=== PATIENT | female | born 1940 | race Caucasian/White ===

== ENCOUNTER 2020-09-11 19:07 | Observation (INO) ==
[2020-09-11] MEDS ORDERED: NORMAL SALINE 500 ML IV ONE ×2 (19:52→20:21)
[2020-09-11 19:53] LABS: Hematocrit 35.1 % (37.0-47.0); Hemoglobin 10.6 gm/dL (12.5-16.0); Mean Cell Volume 91.9 fl (78-100); Mean Corpuscular Hemoglobin 27.7 pg (27-31); Mean Corpuscular Hgb Conc 30.2 g/dl (32-36); Mean Platelet Volume 10.4 fl (8-12.5); Neutrophil # 19.4 K/mm3 (1.3-6.0); Neutrophil % 85.8 % (42-75.0); Platelet Count 257 K/mm3 (150-450); Red Blood Count 3.82 M/mm3 (4.2-5.4); Red Cell Distribution Width 14.3 % (11.5-14.0); White Blood Count 22.6 K/mm3 (4.0-10.5)
[2020-09-11 20:00] LABS: Urine Appearance Slightly Cloudy (CLEAR); Urine Bilirubin Negative (NEGATIVE); Urine Blood Negative /ul (NEGATIVE); Urine Color Yellow; Urine Ketone Negative (NEGATIVE); Urine Protein Negative (NEGATIVE); Urine pH 6.5 pH (5.0-7.0)
[2020-09-11 20:01] LABS: Urine Bacteria 4+; Urine Nitrite Positive (NEGATIVE); Urine RBC None Seen /hpf (0-5); Urine Urobilinogen Normal (NORMAL)
[2020-09-11 20:02] LABS: Albumin * 2.9 gm/dl (3.4-5.0); Anion Gap 12.1 mmol/L (6.8-13.8); BUN/Creatinine Ratio 18.8 (9.0-21.6); Bilirubin, Total 0.5 mg/dL (0.0-1.1); Ca. Corrected For Albumin 8.9 mg/dL (8.4-10.2); Calcium * 8.3 mg/dL (7.9-10.9); Carbon Dioxide 27.6 mmol/L (24-32.6); Potassium 3.7 mmol/L (3.4-4.6); Total Protein 6.8 gm/dL (6.2-8.2)
[2020-09-11] MEDS ORDERED: CIPROFLOXACIN IN 5 % DEXTROSE 400 MG/200 ML BAG IV SCH (20:30)
--- NOTE | 2020-09-11 21:49 | ERNOTE ---
Neuro HPI ER Record Time Seen by Provider: 09/11/20 20:12 Immunizations: IMMUNIZATION HX Immunizations Up to Date Yes Allergies/Adverse Reactions: Allergies Allergy/AdvReac Type Severity Reaction Status Date / Time latex Allergy Unknown Verified 09/11/20 19:32 Penicillins Allergy Unknown Verified 09/11/20 19:32 Sulfa (Sulfonamide Allergy Unknown Verified 09/11/20 19:32 Antibiotics) Home Medications: HOME MEDICATIONS Acetaminophen 500 mg PO QID PRN 09/11/20 [Last Taken Unknown] Albuterol Sulfate [Albuterol Sulfate 0.63 MG/3ML] 0.63 mg IH Q4H PRN 09/11/20 [Last Taken Unknown] Aspirin 325 mg PO DAILY 09/11/20 [Last Taken Unknown] Baclofen 20 mg PO TID 09/11/20 [Last Taken Unknown] Bisacodyl [Women's Laxative] 10 mg PO DAILY PRN 09/11/20 [Last Taken Unknown] Bismuth Subsalicylate [Pepto-Bismol] 15 ml PO Q6H PRN 09/11/20 [Last Taken Unknown] Carboxymethylcellulose Sodium [Refresh Tears] 1 drp OP Q6H PRN 09/11/20 [Last Taken Unknown] Cholecalciferol (Vitamin D3) [Vitamin D3] 125 mcg PO DAILY 09/11/20 [Last Taken Unknown] Duloxetine HCl 60 mg PO DAILY 09/11/20 [Last Taken Unknown] Ezetimibe 10 mg PO DAILY 09/11/20 [Last Taken Unknown] Fluticasone Propion/Salmeterol [Fluticasone-Salmeterol 250-50] 1 ea IH BID 09/11/20 [Last Taken Unknown] Fluticasone Propionate [Flovent Diskus] 2 spray IH DAILY 09/11/20 [Last Taken Unknown] Ipratropium/Albuterol Sulfate [Combivent Respimat Inhal [place]] 1 puff IH QID 09/11/20 [Last Taken Unknown] Krill Oil 500 mg PO DAILY 09/11/20 [Last Taken Unknown] Loperamide HCl [Anti-Diarrheal] 2 mg PO BID PRN 09/11/20 [Last Taken Unknown] Magnesium Hydroxide [Milk Of Magnesia] 30 ml PO DAILY PRN 09/11/20 [Last Taken Unknown] Melatonin 3 mg PO HS 09/11/20 [Last Taken Unknown] Methenamine Hippurate 1 gm PO BID 09/11/20 [Last Taken Unknown] Mirtazapine 45 mg PO HS 09/11/20 [Last Taken Unknown] Montelukast Sodium 10 mg PO DAILY 09/11/20 [Last Taken Unknown] Naproxen [Naprosyn] 500 mg PO BID 09/11/20 [Last Taken Unknown] Omeprazole 20 mg PO DAILY 09/11/20 [Last Taken Unknown] Oxycodone HCl/Acetaminophen [Endocet 10-325 mg Tablet] 1 ea PO BID PRN 09/11/20 [Last Taken Unknown] Oxymetazoline HCl [Nasal [place]] 2 spray NS Q4H PRN 09/11/20 [Last Taken Unknown] Polyethylene Glycol 3350 [Miralax] 17 gm PO DAILY PRN 09/11/20 [Last Taken Unknown] Polyvinyl Alcohol [Artificial Tears] 1 drp OP Q4H PRN 09/11/20 [Last Taken Unknown] Pramipexole Di-HCl [Pramipexole Dihydrochloride] 0.125 mg PO DAILY PRN 09/11/20 [Last Taken Unknown] Pramipexole Di-HCl [Pramipexole Dihydrochloride] 0.125 mg PO HS 09/11/20 [Last Taken Unknown] Pregabalin [Lyrica] 100 mg PO BID 09/11/20 [Last Taken Unknown] Sennosides/Docusate Sodium [Senna-S 8.6-50 mg Tablet] 1 ea PO BID 09/11/20 [Last Taken Unknown] Simvastatin 80 mg PO HS 09/11/20 [Last Taken Unknown] Topiramate [Topamax] 25 mg PO BID 09/11/20 [Last Taken Unknown] Vit A/Vit C/Vit E/Zinc/Copper [Preservision Areds Tablet] 1 ea PO BID 09/11/20 [Last Taken Unknown] Vitamin B Complex Vit C No.3 [B Complex with Vitamin C] 1 ea PO DAILY 09/11/20 [Last Taken Unknown] guaiFENesin [Robafen] 5 ml PO TID PRN 09/11/20 [Last Taken Unknown] metFORMIN HCL [Metformin HCl] 500 mg PO DAILY 09/11/20 [Last Taken Unknown] oxyCODONE HCL/ACETAMINOPHEN [Endocet 10-325 mg Tablet] 1 ea PO BID 09/11/20 [Last Taken Unknown] Review of Systems - Review of Systems Constitutional: Present: See HPI Musculoskeletal: Present: other - Left leg pain from the knee down Psych: Present: other - Confusion All Other Systems: All systems neg except as marked Medical History (Last Reviewed 09/11/20 @ 23:27 by James Bay MD) History of COPD History of anxiety History of muscle weakness Hx of diabetes mellitus Hx of hemiplegia L side Hx of hyperlipidemia Surgical History: Surgical History (Last Reviewed 09/11/20 @ 23:27 by James Bay MD) Surgical history unknown Family History: Family History (Last Reviewed 09/11/20 @ 23:27 by James Bay MD) Other No pertinent family history Social History: (Last Reviewed 09/11/20 @ 23:27 by James Bay MD) Social History: snf: Yes Physical Exam - Physical Exam General Appearance: Present: alert, no apparent distress Head Exam: Present: normal inspection, no evidence of injury Eye Exam: Normal inspection: bilateral, PERRL: bilateral, EOMI: bilateral Ears, Nose, Throat: Present: normal ENT inspection Neck: Present: normal inspection, nontender Respiratory: Present: no respiratory distress, no accessory muscle use Cardiovascular/Chest: Present: regular rate, rhythm Gastrointestinal/Abdominal: Present: nontender, nondistended, soft Back Exam: Present: normal inspection Extremity Exam: Present: non-tender - Left lower extremity mild swelling when compared to the other no redness erythema or pitting edema, other - Distal pulses intact and symmetrical Neurological Exam: Present: alert Skin Exam: Present: normal color, warm/dry Progress - Date and Time Seen: Date and Time: 09/11/20 23:28 On review of labs patient with elevated D-dimer CTA of the chest and ultrasound of the left lower extremity were negative for acute thrombosis. - Results and Orders Patient's Lab Results:: I have reviewed the patient's lab results. - Vital Signs Patient's Vital Signs:: I have reviewed the patient's vital signs. Vital Signs: Vital Signs 09/11/20 19:17 09/11/20 19:25 09/11/20 19:26 Temperature 37.6 C Pulse Rate 99 99 100 Respiratory Rate 17 15 Blood Pressure 91/57 87/51 L O2 Sat by Pulse Oximetry 91 L 92 L 09/11/20 19:40 09/11/20 19:44 09/11/20 19:55 Temperature 37.4 C Pulse Rate 104 H 94 105 H Respiratory Rate 17 15 14 Blood Pressure 96/49 84/50 L 88/53 L O2 Sat by Pulse Oximetry 93 93 93 09/11/20 20:16 09/11/20 20:43 09/11/20 20:47 Temperature 37.1 C Pulse Rate 94 86 85 Respiratory Rate 17 17 17 Blood Pressure 95/56 94/49 95/49 O2 Sat by Pulse Oximetry 95 94 09/11/20 21:08 Temperature 37.2 C Pulse Rate 85 Respiratory Rate 17 Blood Pressure 98/54 O2 Sat by Pulse Oximetry 93 - Progress/Reassessment Chief Complaint: Altered Mental Status Progress:: Unchanged Plan - Plan Plan: Case discussed with Dr. Rodriguez turf sales person who accepted patient for urinary tract infection with delirium and hypotension. Patient initially given Cipro for coverage however CT of the chest came back negative for PE but positive for pneumonia azithromycin ordered.. Patient is allergic to penicillin Departure Clinical Impression: Confusion, Pneumonia UTI (urinary tract infection) Qualifiers: Urinary tract infection type: acute cystitis Hematuria presence: without hematuria Qualified Code(s): N30.00 - Acute cystitis without hematuria - Departure Disposition: Home self-care Condition: Fair
[2020-09-11] MEDS ORDERED: NORMAL SALINE 1,000 ML IV ONE (22:22)
[2020-09-11] MEDS ORDERED: AZITHROMYCIN 500 MG in DEXTROSE 5 % IN WATER 250 ML IV ONE ×2 (23:00)
[2020-09-12] MEDS ORDERED: CIPROFLOXACIN HCL 250 MG TABLET PO SCH (09:00)
[2020-09-12] MEDS ORDERED: guaiFENesin 100 MG/5 ML SYRUP PO PRN (09:23)
[2020-09-12] MEDS ORDERED: ACETAMINOPHEN 500 MG TABLET PO PRN (09:23)
[2020-09-12] MEDS ORDERED: POLYETHYLENE GLYCOL 3350 17 GM PACKET PO PRN (09:23)
[2020-09-12] MEDS ORDERED: MAGNESIUM HYDROXIDE 30 ML UDC PO PRN (09:23)
[2020-09-12] MEDS ORDERED: NAPROXEN 500 MG TABLET PO SCH (09:30)
[2020-09-12] MEDS ORDERED: FLUTICASONE PROPION/SALMETEROL 14 PUFF DISK.W.DEV IH SCH (09:30)
[2020-09-12] MEDS ORDERED: metFORMIN HCL 500 MG TABLET PO SCH (09:30)
[2020-09-12] MEDS ORDERED: EZETIMIBE 10 MG TABLET PO SCH (09:30)
[2020-09-12] MEDS ORDERED: MONTELUKAST SODIUM 10 MG TABLET PO SCH (09:30)
--- NOTE | 2020-09-12 09:34 | HP ---
Chief Complaint - Chief Complaint Date of Service: 09/12/20 Time of Service: 09:34 Chief Complaint: confusion History of Present Illness: Patient with PMHx of COPD, CVA with residual left sided weakness, chronic pain, chronic constipation is a resident of the [facility]. She was having some confusion yesterday, along with dysuria and increased urinary frequency. Workup in the ED found signs of UA, and she was given cipro. WBC was elevated to 22.0. D dimer was 1.25, and subsequent CT chest was negative for PT. She feels like she had a fever yesterday. Denies SOB, increased cough. She also has some left lower extremity pain, which she states is long standing. US of her leg was negative. On my admission exam, she states her confusion has resolved and she would like to go back to the [facility]. Medical History (Last Reviewed 09/11/20 @ 23:27 by James Bay MD) History of COPD History of anxiety History of muscle weakness Hx of diabetes mellitus Hx of hemiplegia L side Hx of hyperlipidemia Surgical History: Surgical History (Last Reviewed 09/11/20 @ 23:27 by James Bay MD) Surgical history unknown Family History: Family History (Last Reviewed 09/11/20 @ 23:27 by James Bay MD) Other No pertinent family history Social History: (Last Reviewed 09/11/20 @ 23:27 by James Bay MD) Social History: halfway: Yes Review Of Systems (GEN) - Review of Systems Generalized/Overall Review: Present: Fever Respiratory: Present: Cough. Absent: Shortness of Breath Cardiac: Absent: Chest Pain, Edema Abdominal: Present: Abdominal Pain - feels like she needs to have a BM, Constipation Genitourinary: Present: Burning, Frequency Musculoskeletal: Present: Other - left calf pain Neurological: Present: No Symptoms Reported Skin: Present: No Symptoms Reported Immunizations: IMMUNIZATION HX Immunizations Up to Date Yes Allergies/Adverse Reactions: Allergies Allergy/AdvReac Type Severity Reaction Status Date / Time latex Allergy Unknown Verified 09/11/20 19:32 Penicillins Allergy Unknown Verified 09/11/20 19:32 Sulfa (Sulfonamide Allergy Unknown Verified 09/11/20 19:32 Antibiotics) Home Medications: HOME MEDICATIONS Acetaminophen 500 mg PO QID PRN 09/11/20 [Last Taken Unknown] Albuterol Sulfate [Albuterol Sulfate 0.63 MG/3ML] 0.63 mg IH Q4H PRN 09/11/20 [Last Taken Unknown] Aspirin 325 mg PO DAILY 09/11/20 [Last Taken Unknown] Baclofen 20 mg PO TID 09/11/20 [Last Taken Unknown] Bisacodyl [Women's Laxative] 10 mg PO DAILY PRN 09/11/20 [Last Taken Unknown] Bismuth Subsalicylate [Pepto-Bismol] 15 ml PO Q6H PRN 09/11/20 [Last Taken Unknown] Carboxymethylcellulose Sodium [Refresh Tears] 1 drp OP Q6H PRN 09/11/20 [Last Taken Unknown] Cholecalciferol (Vitamin D3) [Vitamin D3] 125 mcg PO DAILY 09/11/20 [Last Taken Unknown] Duloxetine HCl 60 mg PO DAILY 09/11/20 [Last Taken Unknown] Ezetimibe 10 mg PO DAILY 09/11/20 [Last Taken Unknown] Fluticasone Propion/Salmeterol [Fluticasone-Salmeterol 250-50] 1 ea IH BID 09/11/20 [Last Taken Unknown] Fluticasone Propionate [Flovent Diskus] 2 spray IH DAILY 09/11/20 [Last Taken Unknown] Ipratropium/Albuterol Sulfate [Combivent Respimat Inhal [place]] 1 puff IH QID 09/11/20 [Last Taken Unknown] Krill Oil 500 mg PO DAILY 09/11/20 [Last Taken Unknown] Loperamide HCl [Anti-Diarrheal] 2 mg PO BID PRN 09/11/20 [Last Taken Unknown] Magnesium Hydroxide [Milk Of Magnesia] 30 ml PO DAILY PRN 09/11/20 [Last Taken Unknown] Melatonin 3 mg PO HS 09/11/20 [Last Taken Unknown] Methenamine Hippurate 1 gm PO BID 09/11/20 [Last Taken Unknown] Mirtazapine 45 mg PO HS 09/11/20 [Last Taken Unknown] Montelukast Sodium 10 mg PO DAILY 09/11/20 [Last Taken Unknown] Naproxen [Naprosyn] 500 mg PO BID 09/11/20 [Last Taken Unknown] Omeprazole 20 mg PO DAILY 09/11/20 [Last Taken Unknown] Oxycodone HCl/Acetaminophen [Endocet 10-325 mg Tablet] 1 ea PO BID PRN 09/11/20 [Last Taken Unknown] Oxymetazoline HCl [Nasal [place]] 2 spray NS Q4H PRN 09/11/20 [Last Taken Unknown] Polyethylene Glycol 3350 [Miralax] 17 gm PO DAILY PRN 09/11/20 [Last Taken Unkno wn] Polyvinyl Alcohol [Artificial Tears] 1 drp OP Q4H PRN 09/11/20 [Last Taken Unknown] Pramipexole Di-HCl [Pramipexole Dihydrochloride] 0.125 mg PO DAILY PRN 09/11/20 [Last Taken Unknown] Pramipexole Di-HCl [Pramipexole Dihydrochloride] 0.125 mg PO HS 09/11/20 [Last Taken Unknown] Pregabalin [Lyrica] 100 mg PO BID 09/11/20 [Last Taken Unknown] Sennosides/Docusate Sodium [Senna-S 8.6-50 mg Tablet] 1 ea PO BID 09/11/20 [Last Taken Unknown] Simvastatin 80 mg PO HS 09/11/20 [Last Taken Unknown] Topiramate [Topamax] 25 mg PO BID 09/11/20 [Last Taken Unknown] Vit A/Vit C/Vit E/Zinc/Copper [Preservision Areds Tablet] 1 ea PO BID 09/11/20 [Last Taken Unknown] Vitamin B Complex Vit C No.3 [B Complex with Vitamin C] 1 ea PO DAILY 09/11/20 [Last Taken Unknown] guaiFENesin [Robafen] 5 ml PO TID PRN 09/11/20 [Last Taken Unknown] metFORMIN HCL [Metformin HCl] 500 mg PO DAILY 09/11/20 [Last Taken Unknown] oxyCODONE HCL/ACETAMINOPHEN [Endocet 10-325 mg Tablet] 1 ea PO BID 09/11/20 [Last Taken Unknown] Exam - Exam Vital Signs: Vital Signs - Last Taken Temp 36.8 C 09/12/20 07:14 Pulse 87 09/12/20 07:14 Resp 16 09/12/20 07:14 BP 147/81 09/12/20 07:14 Pulse Ox 97 09/12/20 07:14 Constitutional: Present: Alert, Cooperative, No distress, Elderly Respiratory: Present: lungs clear, normal breath sounds, no respiratory distress - is oxygenating on 2 L. She uses 3 L at baseline Cardiovascular/Chest: Present: regular rate, rhythm Abdomen: Present: Normal bowel sounds, obese Extremity: Present: no calf tenderness. Absent: lower extremity edema Appearance: Present: appropriate appearance Eye contact: Present: cooperative, good eye contact Diagnostic Studies: Abnormal Lab Results 09/11/20 09/11/20 09/11/20 Range/Units 19:35 19:35 19:35 WBC 22.6 H (4.0-10.5) K/mm3 RBC 3.82 L (4.2-5.4) M/mm3 Hgb 10.6 L (12.5-16.0) gm/dL Hct 35.1 L (37.0-47.0) % MCHC 30.2 L (32-36) g/dl RDW 14.3 H (11.5-14.0) % Immature Gran # (Auto) 0.10 H (0.000-0.0310) K/mm3 Neutrophils % 85.8 H (42-75.0) % Lymphocytes % 8.5 L (20-51) % Neutrophils # 19.4 H (1.3-6.0) K/mm3 D-Dimer 1.25 H (0.19-0.49) ug/mL Plasma Sodium 143 H (130-142) mmol/L Random Glucose 146 H (70-110) mg/dL ALT 14 L (19-67) U/L Albumin 2.9 L (3.4-5.0) gm/dl Urine Nitrate (NEGATIVE) Ur Leukocyte Esterase (NEGATIVE) /ul Urine WBC (0-5) /hpf Urine Bacteria (NONE) 09/11/20 Range/Units 19:47 WBC (4.0-10.5) K/mm3 RBC (4.2-5.4) M/mm3 Hgb (12.5-16.0) gm/dL Hct (37.0-47.0) % MCHC (32-36) g/dl RDW (11.5-14.0) % Immature Gran # (Auto) (0.000-0.0310) K/mm3 Neutrophils % (42-75.0) % Lymphocytes % (20-51) % Neutrophils # (1.3-6.0) K/mm3 D-Dimer (0.19-0.49) ug/mL Plasma Sodium (130-142) mmol/L Random Glucose (70-110) mg/dL ALT (19-67) U/L Albumin (3.4-5.0) gm/dl Urine Nitrate Positive H (NEGATIVE) Ur Leukocyte Esterase 100 H (NEGATIVE) /ul Urine WBC 10-25 H (0-5) /hpf Urine Bacteria 4+ H (NONE) Microbiology 09/11/20 19:50 Urine Culture - Preliminary Urine,Catheterized Gram Negative Bacilli Laboratory Results WBC 22.6 K/mm3 (4.0-10.5) H 09/11/20 19:35 RBC 3.82 M/mm3 (4.2-5.4) L 09/11/20 19:35 Hgb 10.6 gm/dL (12.5-16.0) L 09/11/20 19:35 Hct 35.1 % (37.0-47.0) L 09/11/20 19:35 MCV 91.9 fl (78-100) 09/11/20 19:35 MCH 27.7 pg (27-31) 09/11/20 19:35 MCHC 30.2 g/dl (32-36) L 09/11/20 19:35 RDW 14.3 % (11.5-14.0) H 09/11/20 19:35 Plt Count 257 K/mm3 (150-450) 09/11/20 19:35 MPV 10.4 fl (8-12.5) 09/11/20 19:35 Immature Gran % (Auto) 0.40 % (0.001-0.429) 09/11/20 19:35 Immature Gran # (Auto) 0.10 K/mm3 (0.000-0.0310) H 09/11/20 19:35 Neutrophils % 85.8 % (42-75.0) H 09/11/20 19:35 Lymphocytes % 8.5 % (20-51) L 09/11/20 19:35 Monocytes % 4.4 % (0.0-9) 09/11/20 19:35 Eosinophils % 0.7 % (0.0-3.0) 09/11/20 19:35 Basophils % 0.2 % (0.0-1.0) 09/11/20 19:35 Nucleated RBC % 0.0 k/mm3 (0-1) 09/11/20 19:35 Neutrophils # 19.4 K/mm3 (1.3-6.0) H 09/11/20 19:35 Lymphocytes # 1.92 k/mm3 (1.5-3.5) 09/11/20 19:35 Monocytes # 1.0 k/mm3 (0.0-1.0) 09/11/20 19:35 Eosinophils # 0.2 k/mm3 (0.0-0.7) 09/11/20 19:35 Absolute Basophils 0.0 k/mm3 (0.0-0.1) 09/11/20 19:35 D-Dimer 1.25 ug/mL (0.19-0.49) H 09/11/20 19:35 Sodium 142 mmol/L (132-142) 09/11/20 19:35 Plasma Sodium 143 mmol/L (130-142) H 09/11/20 19:35 Potassium 3.7 mmol/L (3.4-4.6) 09/11/20 19:35 Chloride 106 mmol/L (97-106) 09/11/20 19:35 Carbon Dioxide 27.6 mmol/L (24-32.6) 09/11/20 19:35 Anion Gap 12.1 mmol/L (6.8-13.8) 09/11/20 19:35 BUN 15 mg/dL (3-23) 09/11/20 19:35 Creatinine 0.80 mg/dL (0.4-1.4) 09/11/20 19:35 Est GFR (Non-Af Amer) 74 mL/min (60-130) 09/11/20 19:35 BUN/Creatinine Ratio 18.8 (9.0-21.6) 09/11/20 19:35 Random Glucose 146 mg/dL (70-110) H 09/11/20 19:35 Lactic Acid, Venous 1.1 mmol/L (0.4-2.0) 09/11/20 19:35 Calcium 8.3 mg/dL (7.9-10.9) 09/11/20 19:35 Calcium Adj for Albumin 8.9 mg/dL (8.4-10.2) 09/11/20 19:35 Total Bilirubin 0.5 mg/dL (0.0-1.1) 09/11/20 19:35 AST 12 U/L (0-48) 09/11/20 19:35 ALT 14 U/L (19-67) L 09/11/20 19:35 Alkaline Phosphatase 109 U/L (50-170) 09/11/20 19:35 Troponin I 0.019 ng/mL (0.00-0.10) 09/11/20 19:35 Total Protein 6.8 gm/dL (6.2-8.2) 09/11/20 19:35 Albumin 2.9 gm/dl (3.4-5.0) L 09/11/20 19:35 Urine Color Yellow 09/11/20 19:47 Urine Appearance Slightly cloudy (CLEAR) 09/11/20 19:47 Urine pH 6.5 pH (5.0-7.0) 09/11/20 19:47 Ur Specific [place] 1.010 SP.GR. (1.005-1.010) 09/11/20 19:47 Urine Protein Negative mg/dL (NEGATIVE) 09/11/20 19:47 Urine Glucose (UA) Negative mg/dL (NEGATIVE) 09/11/20 19:47 Urine Ketones Negative mg/dL (NEGATIVE) 09/11/20 19:47 Urine Blood Negative /ul (NEGATIVE) 09/11/20 19:47 Urine Nitrate Positive (NEGATIVE) H 09/11/20 19:47 Urine Bilirubin Negative mg/dl (NEGATIVE) 09/11/20 19:47 Urine Urobilinogen Normal EU/dl (NORMAL) 09/11/20 19:47 Ur Leukocyte Esterase 100 /ul (NEGATIVE) H 09/11/20 19:47 Urine RBC None seen /hpf (0-5) 09/11/20 19:47 Urine WBC 10-25 /hpf (0-5) H 09/11/20 19:47 Ur Epithelial Cells 0-5 /hpf (0-5) 09/11/20 19:47 Urine Bacteria 4+ (NONE) H 09/11/20 19:47 Urine Culture Comments Culture to follow 09/11/20 19:47 Assessment/Plan - Narrative Narrative: She has symptoms of UTI, and UA was positive for nitrates, leukocyte esterase, and 4+ bacteria. Urine culture is growing >100,000 gram negative bacilli. She was started on cipro last night. The confusion she was experiencing yesterday has resolved. There was concern for DVT, but US and CT chest were negative for clot. Since she has improved with cipro, will continue this, and ok to return to [place] today to complete a 3 day course of the cipro. BP was a bit low yesterday, and this has also resolved. This may have been due to reduced intake. - Assessment/Plan (1) UTI (urinary tract infection) Problem: Acute Qualifiers: Urinary tract infection type: acute cystitis Hematuria presence: without hematuria Qualified Code(s): N30.00 - Acute cystitis without hematuria (2) Infectious encephalopathy Problem: Resolved (3) COPD (chronic obstructive pulmonary disease) Problem: Chronic (4) Constipation Problem: Chronic
[2020-09-12] MEDS ORDERED: ALBUTEROL SULFATE 2.5 MG/0.5 ML VIAL.NEB IH PRN (09:40)
[2020-09-12] MEDS ORDERED: BISACODYL 5 MG TABLET.DR PO PRN (09:41)
[2020-09-12] MEDS ORDERED: LOPERAMIDE HCL 2 MG CAPSULE PO PRN (09:45)
[2020-09-12] MEDS ORDERED: SENNOSIDES/DOCUSATE SODIUM 1 TAB TABLET PO SCH (09:45)
[2020-09-12] MEDS ORDERED: DULoxetine HCL 30 MG CAPSULE.SA PO SCH (09:45)
[2020-09-12] MEDS ORDERED: oxyCODONE HCL/ACETAMINOPHEN 1 TAB TABLET PO PRN (09:54)
[2020-09-12] MEDS ORDERED: oxyCODONE HCL 5 MG TABLET PO PRN (09:55)
[2020-09-12] MEDS ORDERED: METHENAMINE MANDELATE 1 GM TABLET PO SCH (10:00)
[2020-09-12] MEDS ORDERED: PRAMIPEXOLE DI-HCL 0.5 MG TABLET PO PRN (10:00)
[2020-09-12] MEDS ORDERED: BACLOFEN 10 MG TABLET PO SCH (10:00)
[2020-09-12] MEDS ORDERED: BUDESONIDE 0.5 MG/2 ML VIAL.NEB IH SCH ×2 (10:00)
[2020-09-12] MEDS ORDERED: TOPIRAMATE 50 MG TABLET PO SCH (10:30)
[2020-09-12] MEDS: ALBUTEROL SULFATE/IPRATROPIUM 3 ML NEBU IH SCH ×2 (10:41→14:20)
[2020-09-12 10:43] LABS: Hematocrit 37.9 % (37.0-47.0); Hemoglobin 11.7 gm/dL (12.5-16.0); Mean Cell Volume 91.3 fl (78-100); Mean Corpuscular Hemoglobin 28.2 pg (27-31); Mean Corpuscular Hgb Conc 30.9 g/dl (32-36); Mean Platelet Volume 9.9 fl (8-12.5); Platelet Count 271 K/mm3 (150-450); Red Blood Count 4.15 M/mm3 (4.2-5.4); Red Cell Distribution Width 14.2 % (11.5-14.0); White Blood Count 19.9 K/mm3 (4.0-10.5)
[2020-09-12 10:46] LABS: Total Cells Counted 100
--- NOTE | 2020-09-12 11:10 | DS ---
(1) UTI (urinary tract infection) Problem: Acute Qualifiers: Urinary tract infection type: acute cystitis Hematuria presence: without hematuria Qualified Code(s): N30.00 - Acute cystitis without hematuria (2) Infectious encephalopathy Problem: Resolved (3) COPD (chronic obstructive pulmonary disease) Problem: Chronic (4) Constipation Problem: Chronic Date of Discharge:: 09/12/20 Hospital Course: Patient with PMHx of COPD, CVA with residual left sided weakness, chronic pain, chronic constipation is a resident of the [facility]. She was having some confusion yesterday, along with dysuria and increased urinary frequency. Workup in the ED found signs of UA, and she was given cipro. WBC was elevated to 22.0. D dimer was 1.25, and subsequent CT chest was negative for PT. She feels like she had a fever yesterday. Denies SOB, increased cough. She also has some left lower extremity pain, which she states is long standing. US of her leg was negative. On my admission exam, she states her confusion has resolved and she would like to go back to the [facility]. Her WBC improved to 12.9 the morning after admission. Will DC back to [place] to complete 3 days of cipro. Procedures Performed: none Results and Findings: Pending Mircobiology Results 09/11/20 19:50 Urine,Catheterized Urine Culture - Preliminary Gram Negative Bacilli Lab Pending Results 09/11/20 19:35: WBC 22.6 H, RBC 3.82 L, Hgb 10.6 L, Hct 35.1 L, MCV 91.9, MCH 27.7, MCHC 30.2 L, RDW 14.3 H, Plt Count 257, MPV 10.4, Immature Gran % (Auto) 0.40, Immature Gran # (Auto) 0.10 H, Neutrophils % 85.8 H, Lymphocytes % 8.5 L, Monocytes % 4.4, Eosinophils % 0.7, Basophils % 0.2, Nucleated RBC % 0.0, Neutrophils # 19.4 H, Lymphocytes # 1.92, Monocytes # 1.0, Eosinophils # 0.2, Absolute Basophils 0.0 09/11/20 19:35: Sodium 142, Plasma Sodium 143 H, Potassium 3.7, Chloride 106, Carbon Dioxide 27.6, Anion Gap 12.1, BUN 15, Creatinine 0.80, Est GFR (Non-Af Amer) 74, BUN/Creatinine Ratio 18.8, Random Glucose 146 H, Calcium 8.3, Calcium Adj for Albumin 8.9, Total Bilirubin 0.5, AST 12, ALT 14 L, Alkaline Phosphatase 109, Total Protein 6.8, Albumin 2.9 L 09/11/20 19:35: Lactic Acid, Venous 1.1 09/11/20 19:35: D-Dimer 1.25 H 09/11/20 19:35: Troponin I 0.019 09/11/20 19:47: Urine Color Yellow, Urine Appearance Slightly cloudy, Urine pH 6.5, Ur Specific [place] 1.010, Urine Protein Negative, Urine Glucose (UA) Negative, Urine Ketones Negative, Urine Blood Negative, Urine Nitrate Positive H, Urine Bilirubin Negative, Urine Urobilinogen Normal, Ur Leukocyte Esterase 100 H, Urine RBC None seen, Urine WBC 10-25 H, Ur Epithelial Cells 0-5, Urine Bacteria 4+ H, Urine Culture Comments Culture to follow 09/12/20 10:34: WBC 19.9 H, RBC 4.15 L, Hgb 11.7 L, Hct 37.9, MCV 91.3, MCH 28.2, MCHC 30.9 L, RDW 14.2 H, Plt Count 271, MPV 9.9, Lymphocytes % (Manual) Pending Discharge Location: [facility] Disposition: SNF Condition: Fair Discharge Activity: Activity as tolerated Discharge Diet: General/regular food Additional Patient Instructions (free text): [facility] SNF for PT and OT to evaluate and treat. Prescriptions (Any new or edited meds): RX: Ciprofloxacin HCl [Cipro] 250 mg PO BID #4 tab Transmission Status: Pending to [facility] Complete Home Medications List: Complete Home Medication List: RX: Acetaminophen 500 mg PO QID PRN 09/11/20 RX: Albuterol Sulfate [Albuterol Sulfate 0.63 MG/3ML] 0.63 mg IH Q4H PRN 09/11/20 RX: Aspirin 325 mg PO DAILY 09/11/20 RX: Baclofen 20 mg PO TID 09/11/20 RX: Bisacodyl [Women's Laxative] 10 mg PO DAILY PRN 09/11/20 RX: Bismuth Subsalicylate [Pepto-Bismol] 15 ml PO Q6H PRN 09/11/20 RX: Carboxymethylcellulose Sodium [Refresh Tears] 1 drp OP Q6H PRN 09/11/20 RX: Cholecalciferol (Vitamin D3) [Vitamin D3] 125 mcg PO DAILY 09/11/20 RX: Duloxetine HCl 60 mg PO DAILY 09/11/20 RX: Ezetimibe 10 mg PO DAILY 09/11/20 RX: Fluticasone Propion/Salmeterol [Fluticasone-Salmeterol 250-50] 1 ea IH BID 09/11/20 RX: Fluticasone Propionate [Flovent Diskus] 2 spray IH DAILY 09/11/20 RX: Ipratropium/Albuterol Sulfate [Combivent Respimat 20-100 Mcg] 1 puff IH QID 09/11/20 RX: Krill Oil 500 mg PO DAILY 09/11/20 RX: Loperamide HCl [Anti-Diarrheal] 2 mg PO BID PRN 09/11/20 RX: Magnesium Hydroxide [Milk Of Magnesia] 30 ml PO DAILY PRN 09/11/20 RX: Melatonin 3 mg PO HS 09/11/20 RX: Methenamine Hippurate 1 gm PO BID 09/11/20 RX: Mirtazapine 45 mg PO HS 09/11/20 RX: Montelukast Sodium 10 mg PO DAILY 09/11/20 RX: Naproxen [Naprosyn] 500 mg PO BID 09/11/20 RX: Omeprazole 20 mg PO DAILY 09/11/20 RX: Oxycodone HCl/Acetaminophen [Endocet 10-325 mg Tablet] 1 ea PO BID PRN 09/11/20 RX: Oxymetazoline HCl [Nasal [place]] 2 spray NS Q4H PRN 09/11/20 RX: Polyethylene Glycol 3350 [Miralax] 17 gm PO DAILY PRN 09/11/20 RX: Polyvinyl Alcohol [Artificial Tears] 1 drp OP Q4H PRN 09/11/20 RX: Pramipexole Di-HCl [Pramipexole Dihydrochloride] 0.125 mg PO DAILY PRN 09/11/20 RX: Pramipexole Di-HCl [Pramipexole Dihydrochloride] 0.125 mg PO HS 09/11/20 RX: Pregabalin [Lyrica] 100 mg PO BID 09/11/20 RX: Sennosides/Docusate Sodium [Senna-S 8.6-50 mg Tablet] 1 ea PO BID 09/11/20 RX: Simvastatin 80 mg PO HS 09/11/20 RX: Topiramate [Topamax] 25 mg PO BID 09/11/20 RX: Vit A/Vit C/Vit E/Zinc/Copper [Preservision Areds Tablet] 1 ea PO BID 09/11/20 RX: Vitamin B Complex Vit C No.3 [B Complex with Vitamin C] 1 ea PO DAILY 09/11/20 RX: guaiFENesin [Robafen] 5 ml PO TID PRN 09/11/20 RX: metFORMIN HCL [Metformin HCl] 500 mg PO DAILY 09/11/20 RX: oxyCODONE HCL/ACETAMINOPHEN [Endocet 10-325 mg Tablet] 1 ea PO BID 09/11/20 RX: Ciprofloxacin HCl [Cipro] 250 mg PO BID #4 tab 09/12/20 Forms: Patient Portal Registration
[2020-09-12 11:13] LABS: Eosinophil 1 % (0-3); Lymphocyte 10 % (20-51); Monocyte 5 % (0-9); Neutrophil 84 % (42-75); Neutrophil # 16.7 K/mm3 (1.3-6.0)
[2020-09-12 11:14] LABS: Platelet Estimate Normal (NORMAL); RBC Morphology Normal (NORMAL)
[2020-09-12 15:11] VITALS: BP 119/69
[2020-09-12] MEDS ORDERED: oxyCODONE HCL 5 MG TABLET PO SCH (21:00)
[2020-09-12] MEDS ORDERED: MIRTAZAPINE 15 MG TABLET PO SCH (21:00)
[2020-09-12] MEDS ORDERED: PRAMIPEXOLE DI-HCL 0.5 MG TABLET PO SCH (21:00)
[2020-09-12] MEDS ORDERED: MELATONIN 3,000 MCG TABLET PO SCH (21:00)
[2020-09-12] MEDS ORDERED: PREGABALIN 50 MG CAPSULE PO SCH (21:00)
[2020-09-12] MEDS ORDERED: oxyCODONE HCL/ACETAMINOPHEN 1 TAB TABLET PO SCH (21:00)
== END 2020-09-12 15:00 ==
LOC: ER 19:07 → INTOOBSV 23:17 → MS 23:17
PROVIDERS: ADMIT Family Medicine; ATTEND Family Medicine

== ENCOUNTER 2020-11-21 10:18 | Observation (INO) ==
--- NOTE | 2020-11-21 10:45 | ERNOTE ---
Medical Problem HPI - Narrative Date of Service: 11/21/20 - General Chief Complaint: Altered Mental Status Time Seen by Provider: 11/21/20 10:24 Source: RN notes reviewed, group home records Exam Limitations: clinical condition - Immun/Allergies/Home Medications Immunizations: IMMUNIZATION HX Immunizations Up to Date Yes Allergies/Adverse Reactions: Allergies latex Allergy (Unknown, Verified 09/28/20 12:22) Penicillins Allergy (Unknown, Verified 09/28/20 12:22) Sulfa (Sulfonamide Antibiotics) Allergy (Unknown, Verified 09/28/20 12:22) tuberculin, purified protein deriva [From Aplisol] Allergy (Unknown, Verified 11/21/20 10:49) Home Medications: HOME MEDICATIONS Acetaminophen 500 mg PO QID PRN 09/11/20 [Last Taken Unknown] Albuterol Sulfate [Albuterol Sulfate 0.63 MG/3ML] 0.63 mg IH Q4H PRN 09/11/20 [Last Taken Unknown] Aspirin 325 mg PO DAILY 09/11/20 [Last Taken Unknown] Baclofen 20 mg PO TID 09/11/20 [Last Taken Unknown] Bisacodyl [Women's Laxative] 10 mg PO DAILY PRN 09/11/20 [Last Taken Unknown] Bismuth Subsalicylate [Pepto-Bismol] 15 ml PO Q6H PRN 09/11/20 [Last Taken Unknown] Carboxymethylcellulose Sodium [Refresh Tears] 1 drp OP Q6H PRN 09/11/20 [Last Taken Unknown] Cholecalciferol (Vitamin D3) [Vitamin D3] 125 mcg PO DAILY 09/11/20 [Last Taken Unknown] Duloxetine HCl 60 mg PO DAILY 09/11/20 [Last Taken Unknown] Ezetimibe 10 mg PO DAILY 09/11/20 [Last Taken Unknown] Fluticasone Propion/Salmeterol [Fluticasone-Salmeterol 250-50] 1 ea IH BID 09/11/20 [Last Taken Unknown] Fluticasone Propionate [Flovent Diskus] 2 spray IH DAILY 09/11/20 [Last Taken Unknown] Ipratropium/Albuterol Sulfate [Combivent Respimat 20-100 Mcg] 1 puff IH QID 09/11/20 [Last Taken Unknown] Krill Oil 500 mg PO DAILY 09/11/20 [Last Taken Unknown] Loperamide HCl [Anti-Diarrheal] 2 mg PO BID PRN 09/11/20 [Last Taken Unknown] Magnesium Hydroxide [Milk Of Magnesia] 30 ml PO DAILY PRN 09/11/20 [Last Taken Unknown] Melatonin 3 mg PO HS 09/11/20 [Last Taken Unknown] Methenamine Hippurate 1 gm PO BID 09/11/20 [Last Taken Unknown] Mirtazapine 45 mg PO HS 09/11/20 [Last Taken Unknown] Montelukast Sodium 10 mg PO DAILY 09/11/20 [Last Taken Unknown] Naproxen [Naprosyn] 500 mg PO BID 09/11/20 [Last Taken Unknown] Omeprazole 20 mg PO DAILY 09/11/20 [Last Taken Unknown] Oxycodone HCl/Acetaminophen [Endocet 10-325 mg Tablet] 1 ea PO BID PRN 09/11/20 [Last Taken Unknown] Oxymetazoline HCl [Nasal [place]] 2 spray NS Q4H PRN 09/11/20 [Last Taken Unknown] Polyethylene Glycol 3350 [Miralax] 17 gm PO DAILY PRN 09/11/20 [Last Taken Unknown] Polyvinyl Alcohol [Artificial Tears] 1 drp OP Q4H PRN 09/11/20 [Last Taken Unknown] Pramipexole Di-HCl [Pramipexole Dihydrochloride] 0.125 mg PO HS 09/11/20 [Last Taken Unknown] Pregabalin [Lyrica] 100 mg PO BID 09/11/20 [Last Taken Unknown] Sennosides/Docusate Sodium [Senna-S 8.6-50 mg Tablet] 1 ea PO BID 09/11/20 [Last Taken Unknown] Simvastatin 80 mg PO HS 09/11/20 [Last Taken Unknown] Topiramate [Topamax] 25 mg PO BID 09/11/20 [Last Taken Unknown] Vit A/Vit C/Vit E/Zinc/Copper [Preservision Areds Tablet] 1 ea PO BID 09/11/20 [Last Taken Unknown] Vitamin B Complex Vit C No.3 [B Complex with Vitamin C] 1 ea PO DAILY 09/11/20 [Last Taken Unknown] guaiFENesin [Robafen] 5 ml PO TID PRN 09/11/20 [Last Taken Unknown] metFORMIN HCL [Metformin HCl] 500 mg PO DAILY 09/11/20 [Last Taken Unknown] Ciprofloxacin HCl [Cipro] 250 mg PO BID #4 tab 09/12/20 [Last Taken Unknown] - History of Present History Narrative: The patient is a 80 year old female who presents via EMS from [facility] for lethargy which has been increasing since yesterday. There are associated symptoms of cough, fatigue and increased confusion. The patient denies pain. There are no alleviating factors. There are no aggravating factors. Previous treatments have included: none. The past medical history includes: anxiety, DM, HLD, COPD and CVA. The social history is negative. The patient has had no known ill contacts. [facility] became concerned of patient's incre asing lethargy since yesterday. Nursing report declines concern of alteration from baseline except for increased drowsiness. Patient is oriented to self, place and events however if not engaged with verbal stimuli quickly returns to sleep. Awakens easily with verbal stimuli. Review of Systems - Narrative Narrative: ROS difficult to obtain due to patient's lethargy, report was also obtained from [facility] nursing staff. - Review of Systems Constitutional: Present: weakness, fatigue. Absent: fever ENT: Present: no symptoms reported. Absent: ear pain, nasal drainage, sore throat Respiratory: Present: cough. Absent: shortness of breath Cardiology: Present: no symptoms reported. Absent: chest pain Gastrointestinal/Abdominal: Present: no symptoms reported. Absent: vomiting, diarrhea Genitourinary: Present: other - incontinence Skin: Present: no symptoms reported. Absent: rash Medical History (Last Reviewed 11/21/20 @ 10:45 by DAVID Sherman) UTI (urinary tract infection) (Acute) Confusion (Acute) Pneumonia (Acute) COPD (chronic obstructive pulmonary disease) (Chronic) Constipation (Chronic) Infectious encephalopathy (Resolved) History of muscle weakness (Acute) Hx of hemiplegia (Acute) L side History of COPD (Acute) Hx of hyperlipidemia (Acute) Hx of diabetes mellitus (Acute) History of anxiety (Acute) Surgical History: Surgical History (Last Reviewed 11/21/20 @ 10:45 by DAVID Sherman) Surgical history unknown (Acute) Family History: Family History (Last Reviewed 11/21/20 @ 10:45 by DAVID Sherman) Other No pertinent family history Social History: (Last Reviewed 11/21/20 @ 10:45 by DAVID Sherman) Social History: group home: Yes group home comment: [place] Physical Exam - Physical Exam General Appearance: Present: no apparent distress, lethargic, sleeping/easy to arouse Head Exam: Present: normal inspection, no evidence of injury Eye Exam: Normal inspection: bilateral Ears, Nose, Throat: Present: other - left facial droop Neck: Present: normal inspection Respiratory: Present: accessory muscle use, rhonchi, wheezing Cardiovascular/Chest: Present: regular rate, rhythm, no murmur Gastrointestinal/Abdominal: Present: normal bowel sounds, nontender, nondistended, soft, no organomegaly Extremity Exam: Present: no edema Neurological Exam: Present: oriented - lethargic but answers questions appropriately with verbal stimuli, motor weakness - left side, CVA residual. Absent: disoriented to person, disoriented to time, disoriented to place, disoriented to situation Skin Exam: Present: normal color, warm/dry Progress - Date and Time Seen: Date and Time: 11/21/20 11:26 Spoke with patient's nurse at [facility] and she states that patient has received Keflex in the past and tolerated without adverse reaction. Will intiaite Rocephin for nitrate positive UTI and presumed pneumonia since was present on previous CXR obtained at [facility] and rhonchi on exam with increased lethargy. 11/21/20 14:48 Case and results discussed with , will admit for IV antibiotics and monitoring. Trop could be associated with pneumonia, will repeat serial level for monitoring. Patient resting without complaint or distress noted. BP improved with IV hydration. Will administer Rocephin and IV Azithromycin for treatment of pnuemonia and UTI, previous urine culture sensitive to Rocephin while cultures pending. - Results and Orders Patient's Lab Results:: I have reviewed the patient's lab results. - Vital Signs Patient's Vital Signs:: I have reviewed the patient's vital signs. - EKG EKG #1 EKG: NSR, RBBB EKG read: Reviewed by me - X-Ray X-Ray #1 X-Ray: chest Interpretation: Reviewed by me X-ray Comments: IMPRESSION: CARDIOMEGALY. PATCHY RIGHT LUNG CONSOLIDATION SLIGHTLY IMPROVED IN THE INTERVAL. Electronically signed by Raza Covarrubias M.D.. Departure Clinical Impression: Elevated troponin Pneumonia Qualifiers: Pneumonia type: due to unspecified organism Laterality: right Lung location: lower lobe of lung Qualified Code(s): J18.9 - Pneumonia, unspecified organism Urinary tract infection Qualifiers: Urinary tract infection type: site unspecified Hematuria presence: without hematuria Qualified Code(s): N39.0 - Urinary tract infection, site not specified - Departure Disposition: Still a patient Condition: Fair
[2020-11-21] MEDS ORDERED: NORMAL SALINE 500 ML IV PRN (10:47)
[2020-11-21 10:52] LABS: Hematocrit 33.5 % (37.0-47.0); Hemoglobin 10.2 gm/dL (12.5-16.0); Mean Cell Volume 87.2 fl (78-100); Mean Corpuscular Hemoglobin 26.6 pg (27-31); Mean Corpuscular Hgb Conc 30.4 g/dl (32-36); Mean Platelet Volume 10.5 fl (8-12.5); Neutrophil # 12.3 K/mm3 (1.3-6.0); Neutrophil % 77.4 % (42-75.0); Platelet Count 281 K/mm3 (150-450); Red Blood Count 3.84 M/mm3 (4.2-5.4)
[2020-11-21 10:57] LABS: Urine Bilirubin Negative (NEGATIVE); Urine Blood Negative /ul (NEGATIVE); Urine Ketone 5 mg/dL (NEGATIVE); Urine Protein 30 mg/dL (NEGATIVE); Urine Urobilinogen Normal (NORMAL)
[2020-11-21 11:10] LABS: Albumin * 2.6 gm/dl (3.4-5.0); Anion Gap 16.9 mmol/L (6.8-13.8); BUN/Creatinine Ratio 15.4 (9.0-21.6); Bilirubin, Total 0.6 mg/dL (0.0-1.1); Ca. Corrected For Albumin 9.5 mg/dL (8.4-10.2); Calcium * 8.7 mg/dL (7.9-10.9); Carbon Dioxide 26.8 mmol/L (24-32.6); Potassium 3.7 mmol/L (3.4-4.6); Total Protein 7.3 gm/dL (6.2-8.2); Troponin I 0.212 ng/mL (0.00-0.10)
[2020-11-21 11:16] LABS: Urine Appearance Slightly Cloudy (CLEAR); Urine Bacteria 4+; Urine Color Yellow; Urine Nitrite Positive (NEGATIVE); Urine RBC None Seen /hpf (0-5); Urine WBC >50 /hpf (0-5)
[2020-11-21] MEDS ORDERED: cefTRIAXone SODIUM 1,000 MG/100 ML BAG IV ONE (11:26)
[2020-11-21] MEDS ORDERED: NORMAL SALINE 1,000 ML IV PRN (11:50)
[2020-11-21] MEDS ORDERED: AZITHROMYCIN 500 MG in DEXTROSE 5 % IN WATER 250 ML IV ONE ×2 (13:08)
[2020-11-21] MEDS ORDERED: guaiFENesin 100 MG/5 ML SYRUP PO PRN (21:33)
[2020-11-21] MEDS ORDERED: POLYETHYLENE GLYCOL 3350 17 GM PACKET PO PRN (21:33)
[2020-11-21] MEDS ORDERED: MAGNESIUM HYDROXIDE 30 ML UDC PO PRN (21:33)
[2020-11-21] MEDS ORDERED: ACETAMINOPHEN 500 MG TABLET PO PRN (21:33)
[2020-11-21] MEDS ORDERED: ALBUTEROL SULFATE 0.63 MG/3 ML VIAL.NEB IH PRN (21:54)
[2020-11-21] MEDS ORDERED: BISMUTH SUBSALICYLATE PO PRN (21:55)
[2020-11-21] MEDS ORDERED: BISACODYL 5 MG TABLET.DR PO PRN (21:55)
[2020-11-21] MEDS ORDERED: GLYCERIN/PROPYLENE GLYCOL 150 DROP BTL EACHEYE PRN (22:04)
--- NOTE | 2020-11-21 23:16 | HP ---
Chief Complaint - Chief Complaint Date of Service: 11/21/20 Time of Service: 22:00 Chief Complaint: Lethargy, altered mental status History of Present Illness: Tamela is a 80 yo female who presented to the [facility] ER from [facility] for lethargy noted by nursing. Reports indicate increased cough, fatigue, and confusion. She was treated for UTI back in September with Cipro. Changes in patient condition began yesterday. The patient is a poor historian and is sleeping and difficult to awaken. When she does awaken she falls to sleep easily/quickly. Medical History (Last Reviewed 11/21/20 @ 11:03 by Jose A Joseph, RN) UTI (urinary tract infection) (Acute) Confusion (Acute) Pneumonia (Acute) COPD (chronic obstructive pulmonary disease) (Chronic) Constipation (Chronic) Infectious encephalopathy (Resolved) History of muscle weakness (Acute) Hx of hemiplegia (Acute) L side History of COPD (Acute) Hx of hyperlipidemia (Acute) Hx of diabetes mellitus (Acute) History of anxiety (Acute) Surgical History: Surgical History (Last Reviewed 11/21/20 @ 11:03 by Jose A Joseph, RN) Surgical history unknown (Acute) Family History: Family History (Last Reviewed 11/21/20 @ 11:03 by Jose A Joseph, RN) Other No pertinent family history Social History: (Last Reviewed 11/21/20 @ 11:03 by Jose A Joseph, RN) Social History: fpc: Yes fpc comment: [place] Review Of Systems (GEN) - Review of Systems Additional Comments: ROS unobtainable in patient's current condition. Immunizations: IMMUNIZATION HX Immunizations Up to Date Yes History of Influenza Vaccine More Information Required Hx Pneumococcal Vaccination More Information Required Allergies/Adverse Reactions: Allergies Allergy/AdvReac Type Severity Reaction Status Date / Time latex Allergy Unknown Verified 09/28/20 12:22 Penicillins Allergy Unknown Verified 09/28/20 12:22 Sulfa (Sulfonamide Allergy Unknown Verified 09/28/20 12:22 Antibiotics) tuberculin, purified protein Allergy Unknown Verified 11/21/20 10:49 deriva [From Aplisol] Home Medications: HOME MEDICATIONS Acetaminophen 500 mg PO QID PRN 09/11/20 [Last Taken Unknown] Albuterol Sulfate [Albuterol Sulfate 0.63 MG/3ML] 0.63 mg IH Q4H PRN 09/11/20 [Last Taken Unknown] Aspirin 325 mg PO DAILY 09/11/20 [Last Taken Unknown] Baclofen 20 mg PO TID 09/11/20 [Last Taken Unknown] Bisacodyl [Women's Laxative] 10 mg PO DAILY PRN 09/11/20 [Last Taken Unknown] Bismuth Subsalicylate [Pepto-Bismol] 15 ml PO Q6H PRN 09/11/20 [Last Taken Unknown] Carboxymethylcellulose Sodium [Refresh Tears] 1 drp OP Q6H PRN 09/11/20 [Last Taken Unknown] Cholecalciferol (Vitamin D3) [Vitamin D3] 125 mcg PO DAILY 09/11/20 [Last Taken Unknown] Duloxetine HCl 60 mg PO DAILY 09/11/20 [Last Taken Unknown] Ezetimibe 10 mg PO DAILY 09/11/20 [Last Taken Unknown] Fluticasone Propion/Salmeterol [Fluticasone-Salmeterol 250-50] 1 ea IH BID 09/11/20 [Last Taken Unknown] Fluticasone Propionate [Flovent Diskus] 2 spray IH DAILY 09/11/20 [Last Taken Unknown] Ipratropium/Albuterol Sulfate [Combivent Respimat 20-100 Mcg] 1 puff IH QID 09/11/20 [Last Taken Unknown] Krill Oil 500 mg PO DAILY 09/11/20 [Last Taken Unknown] Loperamide HCl [Anti-Diarrheal] 2 mg PO BID PRN 09/11/20 [Last Taken Unknown] Magnesium Hydroxide [Milk Of Magnesia] 30 ml PO DAILY PRN 09/11/20 [Last Taken Unknown] Melatonin 3 mg PO HS 09/11/20 [Last Taken Unknown] Methenamine Hippurate 1 gm PO BID 09/11/20 [Last Taken Unknown] Mirtazapine 45 mg PO HS 09/11/20 [Last Taken Unknown] Montelukast Sodium 10 mg PO DAILY 09/11/20 [Last Taken Unknown] Naproxen [Naprosyn] 500 mg PO BID 09/11/20 [Last Taken Unknown] Omeprazole 20 mg PO DAILY 09/11/20 [Last Taken Unknown] Oxycodone HCl/Acetaminophen [Endocet 10-325 mg Tablet] 1 ea PO BID PRN 09/11/20 [Last Taken Unknown] Oxymetazoline HCl [Nasal [place]] 2 spray NS Q4H PRN 09/11/20 [Last Taken Unknown] Polyethylene Glycol 3350 [Miralax] 17 gm PO DAILY PRN 09/11/20 [Last Taken Unknown] Polyvinyl Alcohol [Artificial Tears] 1 drp OP Q4H PRN 09/11/20 [Last Taken Unknown] Pramipexole Di-HCl [Pramipexole Dihydrochloride] 0.125 mg PO HS 09/11/20 [Last Taken Unknown] Pregabalin [Lyrica] 100 mg PO BID 09/11/20 [Last Taken Unknown] Sennosides/Docusate Sodium [Senna-S 8.6-50 mg Tablet] 1 ea PO BID 09/11/20 [Last Taken Unknown] Simvastatin 80 mg PO HS 09/11/20 [Last Taken Unknown] Topiramate [Topamax] 25 mg PO BID 09/11/20 [Last Taken Unknown] Vit A/Vit C/Vit E/Zinc/Copper [Preservision [place]red[place] Tablet] 1 ea PO BID 09/11/20 [Last Taken Unknown] Vitamin B Complex Vit C No.3 [B Complex with Vitamin C] 1 ea PO DAILY 09/11/20 [Last Taken Unknown] guaiFENesin [Robafen] 5 ml PO TID PRN 09/11/20 [Last Taken Unknown] metFORMIN HCL [Metformin HCl] 500 mg PO DAILY 09/11/20 [Last Taken Unknown] Ciprofloxacin HCl [Cipro] 250 mg PO BID #4 tab 09/12/20 [Last Taken Unknown] Exam - Exam Vital Signs: Vital Signs - Last Taken Temp 36.7 C 11/21/20 19:25 Pulse 75 11/21/20 19:25 Resp 17 11/21/20 19:25 BP 116/62 11/21/20 19:25 Pulse Ox 95 11/21/20 19:25 Constitutional: Present: Lethargic Eye Exam: bilateral eye: normal inspection Respiratory: Present: no respiratory distress, crackles - right lung base Cardiovascular/Chest: Present: regular rate, rhythm Peripheral Pulses: radial (R): 2+, radial (L): 2+ Abdomen: Present: Normal bowel sounds, soft, nontender, nondistended Skin Exam: Present: normal color, warm/dry, no cyanosis Neurologic: Present: other - Does not participate due to somnolence Diagnostic Studies: Abnormal Lab Results 11/21/20 11/21/20 11/21/20 Range/Units 10:33 10:33 10:52 WBC 16.0 H (4.0-10.5) K/mm3 RBC 3.84 L (4.2-5.4) M/mm3 Hgb 10.2 L (12.5-16.0) gm/dL Hct 33.5 L (37.0-47.0) % MCH 26.6 L (27-31) pg MCHC 30.4 L (32-36) g/dl RDW 16.0 H (11.5-14.0) % Immature Gran % (Auto) 0.60 H (0.001-0.429) % Immature Gran # (Auto) 0.10 H (0.000-0.0310) K/mm3 Neutrophils % 77.4 H (42-75.0) % Lymphocytes % 17.6 L (20-51) % Neutrophils # 12.3 H (1.3-6.0) K/mm3 Sodium 144 H (132-142) mmol/L Plasma Sodium 144 H (130-142) mmol/L Anion Gap 16.9 H (6.8-13.8) mmol/L Est GFR (Non-Af Amer) 40 L D (60-130) mL/min ALT 13 L (19-67) U/L Troponin I 0.212 H* (0.00-0.10) ng/mL B-Natriuretic Peptide 2020 H (5-550) pg/mL Albumin 2.6 L (3.4-5.0) gm/dl Urine Protein 30 H (NEGATIVE) mg/dL Urine Nitrate Positive H (NEGATIVE) Ur Leukocyte Esterase 75 H (NEGATIVE) /ul Urine WBC >50 H (0-5) /hpf Ur Epithelial Cells 5-10 H (0-5) /hpf Urine Bacteria 4+ H (NONE) 11/21/20 Range/Units 13:28 WBC (4.0-10.5) K/mm3 RBC (4.2-5.4) M/mm3 Hgb (12.5-16.0) gm/dL Hct (37.0-47.0) % MCH (27-31) pg MCHC (32-36) g/dl RDW (11.5-14.0) % Immature Gran % (Auto) (0.001-0.429) % Immature Gran # (Auto) (0.000-0.0310) K/mm3 Neutrophils % (42-75.0) % Lymphocytes % (20-51) % Neutrophils # (1.3-6.0) K/mm3 Sodium (132-142) mmol/L Plasma Sodium (130-142) mmol/L Anion Gap (6.8-13.8) mmol/L Est GFR (Non-Af Amer) (60-130) mL/min ALT (19-67) U/L Troponin I 0.144 H* (0.00-0.10) ng/mL B-Natriuretic Peptide (5-550) pg/mL Albumin (3.4-5.0) gm/dl Urine Protein (NEGATIVE) mg/dL Urine Nitrate (NEGATIVE) Ur Leukocyte Esterase (NEGATIVE) /ul Urine WBC (0-5) /hpf Ur Epithelial Cells (0-5) /hpf Urine Bacteria (NONE) Laboratory Results WBC 16.0 K/mm3 (4.0-10.5) H 11/21/20 10:33 RBC 3.84 M/mm3 (4.2-5.4) L 11/21/20 10:33 Hgb 10.2 gm/dL (12.5-16.0) L 11/21/20 10:33 Hct 33.5 % (37.0-47.0) L 11/21/20 10:33 MCV 87.2 fl (78-100) 11/21/20 10:33 MCH 26.6 pg (27-31) L 11/21/20 10:33 MCHC 30.4 g/dl (32-36) L 11/21/20 10:33 RDW 16.0 % (11.5-14.0) H 11/21/20 10:33 Plt Count 281 K/mm3 (150-450) 11/21/20 10:33 MPV 10.5 fl (8-12.5) 11/21/20 10:33 Immature Gran % (Auto) 0.60 % (0.001-0.429) H 11/21/20 10:33 Immature Gran # (Auto) 0.10 K/mm3 (0.000-0.0310) H 11/21/20 10:33 Neutrophils % 77.4 % (42-75.0) H 11/21/20 10:33 Lymphocytes % 17.6 % (20-51) L 11/21/20 10:33 Monocytes % 3.4 % (0.0-9) 11/21/20 10:33 Eosinophils % 0.9 % (0.0-3.0) 11/21/20 10:33 Basophils % 0.1 % (0.0-1.0) 11/21/20 10:33 Nucleated RBC % 0.0 k/mm3 (0-1) 11/21/20 10:33 Neutrophils # 12.3 K/mm3 (1.3-6.0) H 11/21/20 10:33 Lymphocytes # 2.81 k/mm3 (1.5-3.5) 11/21/20 10:33 Monocytes # 0.6 k/mm3 (0.0-1.0) 11/21/20 10:33 Eosinophils # 0.1 k/mm3 (0.0-0.7) 11/21/20 10:33 Absolute Basophils 0.0 k/mm3 (0.0-0.1) 11/21/20 10:33 Sodium 144 mmol/L (132-142) H 11/21/20 10:33 Plasma Sodium 144 mmol/L (130-142) H 11/21/20 10:33 Potassium 3.7 mmol/L (3.4-4.6) 11/21/20 10:33 Chloride 104 mmol/L (97-106) 11/21/20 10:33 Carbon Dioxide 26.8 mmol/L (24-32.6) 11/21/20 10:33 Anion Gap 16.9 mmol/L (6.8-13.8) H 11/21/20 10:33 BUN 21 mg/dL (3-23) D 11/21/20 10:33 Creatinine 1.36 mg/dL (0.4-1.4) D 11/21/20 10:33 Est GFR (Non-Af Amer) 40 mL/min (60-130) L D 11/21/20 10:33 BUN/Creatinine Ratio 15.4 (9.0-21.6) 11/21/20 10:33 Random Glucose 103 mg/dL (70-110) 11/21/20 10:33 Lactic Acid, Venous 1.2 mmol/L (0.4-2.0) 11/21/20 10:33 Calcium 8.7 mg/dL (7.9-10.9) 11/21/20 10:33 Calcium Adj for Albumin 9.5 mg/dL (8.4-10.2) 11/21/20 10:33 Total Bilirubin 0.6 mg/dL (0.0-1.1) 11/21/20 10:33 AST 12 U/L (0-48) 11/21/20 10:33 ALT 13 U/L (19-67) L 11/21/20 10:33 Alkaline Phosphatase 113 U/L (50-170) 11/21/20 10:33 Troponin I 0.144 ng/mL (0.00-0.10) H* 11/21/20 13:28 B-Natriuretic Peptide 2020 pg/mL (5-550) H 11/21/20 10:33 Total Protein 7.3 gm/dL (6.2-8.2) 11/21/20 10:33 Albumin 2.6 gm/dl (3.4-5.0) L 11/21/20 10:33 Procalcitonin 0.16 ng/mL (0.05-0.50) 11/21/20 10:33 Urine Color Yellow 11/21/20 10:52 Urine Appearance Slightly cloudy (CLEAR) 11/21/20 10:52 Urine pH 5.0 pH (5.0-7.0) 11/21/20 10:52 Ur Specific [place] 1.020 SP.GR. (1.005-1.010) 11/21/20 10:52 Urine Protein 30 mg/dL (NEGATIVE) H 11/21/20 10:52 Urine Glucose (UA) Negative mg/dL (NEGATIVE) 11/21/20 10:52 Urine Ketones 5 mg/dL (NEGATIVE) 11/21/20 10:52 Urine Blood Negative /ul (NEGATIVE) 11/21/20 10:52 Urine Nitrate Positive (NEGATIVE) H 11/21/20 10:52 Urine Bilirubin Negative mg/dl (NEGATIVE) 11/21/20 10:52 Urine Urobilinogen Normal EU/dl (NORMAL) 11/21/20 10:52 Ur Leukocyte Esterase 75 /ul (NEGATIVE) H 11/21/20 10:52 Urine RBC None seen /hpf (0-5) 11/21/20 10:52 Urine WBC >50 /hpf (0-5) H 11/21/20 10:52 Ur Epithelial Cells 5-10 /hpf (0-5) H 11/21/20 10:52 Urine Bacteria 4+ (NONE) H 11/21/20 10:52 Urine Culture Comments Culture to follow 11/21/20 10:52 SARS-CoV-2 (PCR) Not detected (NotDetected) 11/21/20 11:36 Assessment/Plan - Narrative Narrative: Tamela is a 80 yo female with metabolic encephalopathy secondary to infection (Pneumonia vs UTI) vs hypernatremia. Will treat with rocephin/azithromycin and fluids. She is more confused and lethargic from her baseline which was the reason for her presentation to the ER. Will monitor her condition with treatment. Her WBC is 16k. Chest xray shows right lung pneumonia. UA suspicious for UTI. Sodium a little elevated at 144. Will admit to obser vation and see how she responds to treatment. Antibiotics will cover both pneumonia and UTI. If improved may be discharged tomorrow vs switching to inpatient if she is not improved. - Assessment/Plan (1) Metabolic encephalopathy Problem: Acute (2) Elevated troponin Problem: Acute (3) UTI (urinary tract infection) Problem: Acute Qualifiers: Urinary tract infection type: site unspecified Hematuria presence: without hematuria Qualified Code(s): N39.0 - Urinary tract infection, site not specified (4) Pneumonia Problem: Acute Qualifiers: Pneumonia type: due to unspecified organism Laterality: right Lung location: lower lobe of lung Qualified Code(s): J18.9 - Pneumonia, unspecified organism (5) Hypernatremia Problem: Acute
[2020-11-21] MEDS: 0.5 NORMAL SALINE 1,000 ML IV PRN (23:49)
[2020-11-22] MEDS ORDERED: PANTOPRAZOLE SODIUM 20 MG TABLET.DR PO SCH (07:00)
[2020-11-22] MEDS ORDERED: BUDESONIDE 0.5 MG/2 ML VIAL.NEB IH SCH (07:00)
[2020-11-22] MEDS ORDERED: ALBUTEROL SULFATE 2.5 MG/0.5 ML VIAL.NEB IH PRN (07:45)
[2020-11-22 08:36] LABS: Hematocrit 35.5 % (37.0-47.0); Hemoglobin 10.8 gm/dL (12.5-16.0); Mean Cell Volume 87.4 fl (78-100); Mean Corpuscular Hemoglobin 26.6 pg (27-31); Mean Corpuscular Hgb Conc 30.4 g/dl (32-36); Mean Platelet Volume 10.5 fl (8-12.5); Neutrophil # 11.4 K/mm3 (1.3-6.0); Neutrophil % 81.1 % (42-75.0); Platelet Count 277 K/mm3 (150-450); Red Blood Count 4.06 M/mm3 (4.2-5.4); Red Cell Distribution Width 15.6 % (11.5-14.0); White Blood Count 14.1 K/mm3 (4.0-10.5)
[2020-11-22 08:58] LABS: Albumin * 2.6 gm/dl (3.4-5.0); Anion Gap 10.7 mmol/L (6.8-13.8); BUN/Creatinine Ratio 22.2 (9.0-21.6); Bilirubin, Total 0.4 mg/dL (0.0-1.1); Ca. Corrected For Albumin 9.7 mg/dL (8.4-10.2); Calcium * 8.9 mg/dL (7.9-10.9); Carbon Dioxide 26.7 mmol/L (24-32.6); Potassium 3.4 mmol/L (3.4-4.6); Total Protein 7.7 gm/dL (6.2-8.2)
[2020-11-22] MEDS ORDERED: TOPIRAMATE 50 MG TABLET PO SCH (09:00)
[2020-11-22] MEDS ORDERED: PREGABALIN 50 MG CAPSULE PO SCH (09:00)
[2020-11-22] MEDS ORDERED: SENNOSIDES/DOCUSATE SODIUM 1 TAB TABLET PO SCH (09:00)
[2020-11-22] MEDS ORDERED: MONTELUKAST SODIUM 10 MG TABLET PO SCH ×2 (09:00→21:00)
[2020-11-22] MEDS ORDERED: ASPIRIN 325 MG TABLET.DR PO SCH (09:00)
[2020-11-22] MEDS ORDERED: DULoxetine HCL 30 MG CAPSULE.SA PO SCH (09:00)
[2020-11-22] MEDS ORDERED: AZITHROMYCIN 250 MG TABLET PO SCH (09:30)
[2020-11-22] MEDS ORDERED: CEFDINIR 300 MG CAPSULE PO SCH (09:30)
[2020-11-22] MEDS: 0.5 NORMAL SALINE 1,000 ML IV PRN (10:01)
[2020-11-22] MEDS: ALBUTEROL SULFATE/IPRATROPIUM 3 ML NEBU IH SCH (12:40)
--- NOTE | 2020-11-22 13:26 | DS ---
(1) Metabolic encephalopathy Problem: Resolved (2) Elevated troponin Problem: Acute (3) UTI (urinary tract infection) Problem: Acute Qualifiers: Urinary tract infection type: site unspecified Hematuria presence: without hematuria Qualified Code(s): N39.0 - Urinary tract infection, site not specified (4) Pneumonia Problem: Acute Qualifiers: Pneumonia type: due to unspecified organism Laterality: right Lung location: lower lobe of lung Qualified Code(s): J18.9 - Pneumonia, unspecified organism (5) Hypernatremia Problem: Resolved Date of Discharge:: 11/22/20 Hospital Course: Tamela was admitted due to encephalopathy secondary to metabolic/infectious etiology. This was treated with fluids and antibiotics to cover right lung pneumonia present on chest xray and UTI. She was started on rocephin/azithromycin and improved. WBC improved and mental status returned to her baseline. Antibiotics were adjusted to oral Cefdinir and azithromycin and she will be discharged to [facility] today. Procedures Performed: none Results and Findings: Pending Mircobiology Results 11/21/20 10:55 Blood Blood Culture - Preliminary NO GROWTH 24 HOURS 11/21/20 10:33 Blood Blood Culture - Preliminary NO GROWTH 24 HOURS 11/21/20 11:03 Urine,Catheterized Urine Culture - Preliminary Gram Negative Bacilli Lab Pending Results 11/21/20 10:33: Procalcitonin 0.16 11/21/20 10:33: WBC 16.0 H, RBC 3.84 L, Hgb 10.2 L, Hct 33.5 L, MCV 87.2, MCH 26.6 L, MCHC 30.4 L, RDW 16.0 H, Plt Count 281, MPV 10.5, Immature Gran % (Auto) 0.60 H, Immature Gran # (Auto) 0.10 H, Neutrophils % 77.4 H, Lymphocytes % 17.6 L, Monocytes % 3.4, Eosinophils % 0.9, Basophils % 0.1, Nucleated RBC % 0.0, Neutrophils # 12.3 H, Lymphocytes # 2.81, Monocytes # 0.6, Eosinophils # 0.1, Absolute Basophils 0.0 11/21/20 10:33: Sodium 144 H, Plasma Sodium 144 H, Potassium 3.7, Chloride 104, Carbon Dioxide 26.8, Anion Gap 16.9 H, BUN 21 D, Creatinine 1.36 D, Est GFR (Non-Af Amer) 40 L D, BUN/Creatinine Ratio 15.4, Random Glucose 103, Calcium 8.7, Calcium Adj for Albumin 9.5, Total Bilirubin 0.6, AST 12, ALT 13 L, Alkaline Phosphatase 113, Troponin I 0.212 H*, B-Natriuretic Peptide 2020 H, Total Protein 7.3, Albumin 2.6 L 11/21/20 10:33: Lactic Acid, Venous 1.2 11/21/20 10:52: Urine Color Yellow, Urine Appearance Slightly cloudy, Urine pH 5.0, Ur Specific [place] 1.020, Urine Protein 30 H, Urine Glucose (UA) Negative, Urine Ketones 5, Urine Blood Negative, Urine Nitrate Positive H, Urine Bilirubin Negative, Urine Urobilinogen Normal, Ur Leukocyte Esterase 75 H, Urine RBC None seen, Urine WBC >50 H, Ur Epithelial Cells 5-10 H, Urine Bacteria 4+ H, Urine Culture Comments Culture to follow 11/21/20 11:36: SARS-CoV-2 (PCR) Not detected 11/21/20 13:28: Troponin I 0.144 H* 11/22/20 08:15: WBC 14.1 H, RBC 4.06 L, Hgb 10.8 L, Hct 35.5 L, MCV 87.4, MCH 26.6 L, MCHC 30.4 L, RDW 15.6 H, Plt Count 277, MPV 10.5, Immature Gran % (Auto) 0.40, Immature Gran # (Auto) 0.05 H, Neutrophils % 81.1 H, Lymphocytes % 13.4 L, Monocytes % 3.6, Eosinophils % 1.4, Basophils % 0.1, Nucleated RBC % 0.0, Neutrophils # 11.4 H, Lymphocytes # 1.88, Monocytes # 0.5, Eosinophils # 0.2, Absolute Basophils 0.0 11/22/20 08:15: Sodium 141, Plasma Sodium 141, Potassium 3.4, Chloride 107 H, Carbon Dioxide 26.7, Anion Gap 10.7, BUN 14, Creatinine 0.63, Est GFR (Non-Af Amer) 97 D, BUN/Creatinine Ratio 22.2 H, Random Glucose 125 H, Calcium 8.9, Calcium Adj for Albumin 9.7, Total Bilirubin 0.4, AST 14, ALT 15 L, Alkaline Phosphatase 126, Total Protein 7.7, Albumin 2.6 L Discharge Location: [facility] Disposition: SNF Condition: Fair Level of Care: SNF Discharge Activity: Activity as tolerated Discharge Diet: Consistent carbs Referrals: Edel Ramirez DO [Primary Care Provider] - Problem Oriented Discharge Instructions to Patient/Family: Community-Acquired Pneumonia, Adult, [id number], Urinary Tract Infection, Adult, [id number] Additional Patient Instructions (free text): To [facility] for therapies, PT, OT. Please call and fax discharge orders to them. Prescriptions (Any new or edited meds): Cefdinir [Omnicef] 300 mg PO BID #20 cap Transmission Status: Pending to [facility] Azithromycin [Zithromax] 250 mg PO DAILY #4 tab Transmission Status: Pending to [facility] Complete Home Medications List: Complete Home Medication List: Acetaminophen 500 mg PO QID PRN 09/11/20 Albuterol Sulfate [Albuterol Sulfate 0.63 MG/3ML] 0.63 mg IH Q4H PRN 09/11/20 Aspirin 325 mg PO DAILY 09/11/20 Baclofen 20 mg PO TID 09/11/20 Bisacodyl [Women's Laxative] 10 mg PO DAILY PRN 09/11/20 Bismuth Subsalicylate [Pepto-Bismol] 15 ml PO Q6H PRN 09/11/20 Carboxymethylcellulose Sodium [Refresh Tears] 1 drp OP Q6H PRN 09/11/20 Cholecalciferol (Vitamin D3) [Vitamin D3] 125 mcg PO DAILY 09/11/20 Duloxetine HCl 60 mg PO DAILY 09/11/20 Ezetimibe 10 mg PO DAILY 09/11/20 Fluticasone Propion/Salmeterol [Fluticasone-Salmeterol 250-50] 1 ea IH BID 09/11/20 Fluticasone Propionate [Flovent Diskus] 2 spray IH DAILY 09/11/20 Ipratropium/Albuterol Sulfate [Combivent Respimat 20-100 Mcg] 1 puff IH QID 09/11/20 Krill Oil 500 mg PO DAILY 09/11/20 Loperamide HCl [Anti-Diarrheal] 2 mg PO BID PRN 09/11/20 Magnesium Hydroxide [Milk Of Magnesia] 30 ml PO DAILY PRN 09/11/20 Melatonin 3 mg PO HS 09/11/20 Methenamine Hippurate 1 gm PO BID 09/11/20 Mirtazapine 45 mg PO HS 09/11/20 Montelukast Sodium 10 mg PO DAILY 09/11/20 Naproxen [Naprosyn] 500 mg PO BID 09/11/20 Omeprazole 20 mg PO DAILY 09/11/20 Oxycodone HCl/Acetaminophen [Endocet 10-325 mg Tablet] 1 ea PO BID PRN 09/11/20 Oxymetazoline HCl [Nasal [place]] 2 spray NS Q4H PRN 09/11/20 Polyethylene Glycol 3350 [Miralax] 17 gm PO DAILY PRN 09/11/20 Polyvinyl Alcohol [Artificial Tears] 1 drp OP Q4H PRN 09/11/20 Pramipexole Di-HCl [Pramipexole Dihydrochloride] 0.125 mg PO HS 09/11/20 Pregabalin [Lyrica] 100 mg PO BID 09/11/20 Sennosides/Docusate Sodium [Senna-S 8.6-50 mg Tablet] 1 ea PO BID 09/11/20 Simvastatin 80 mg PO HS 09/11/20 Topiramate [Topamax] 25 mg PO BID 09/11/20 Vit A/Vit C/Vit E/Zinc/Copper [Preservision Areds Tablet] 1 ea PO BID 09/11/20 Vitamin B Complex Vit C No.3 [B Complex with Vitamin C] 1 ea PO DAILY 09/11/20 guaiFENesin [Robafen] 5 ml PO TID PRN 09/11/20 metFORMIN HCL [Metformin HCl] 500 mg PO DAILY 09/11/20 Ciprofloxacin HCl [Cipro] 250 mg PO BID #4 tab 09/12/20 Azithromycin [Zithromax] 250 mg PO DAILY #4 tab 11/22/20 Cefdinir [Omnicef] 300 mg PO BID #20 cap 11/22/20 Forms: Patient Portal Registration
[2020-11-22 15:08] VITALS: BP 139/72
[2020-11-22] MEDS ORDERED: ALBUTEROL SULFATE/IPRATROPIUM 3 ML NEBU IH SCH (19:00)
[2020-11-22] MEDS ORDERED: PRAMIPEXOLE DI-HCL 0.5 MG TABLET PO SCH (21:00)
[2020-11-22] MEDS ORDERED: MELATONIN 3,000 MCG TABLET PO SCH (21:00)
[2020-11-22] MEDS ORDERED: MIRTAZAPINE 15 MG TABLET PO SCH (21:00)
[2020-11-22] MEDS ORDERED: SIMVASTATIN 40 MG TABLET PO SCH (21:00)
== END 2020-11-22 16:16 ==
LOC: ER 10:18 → INTOOBSV 12:06 → MS 12:06
PROVIDERS: ADMIT Family Medicine; ATTEND Family Medicine

== ENCOUNTER 2021-01-11 07:52 | Observation (INO) ==
[2021-01-11] MEDS ORDERED: NORMAL SALINE 1,000 ML IV ONE (08:19)
[2021-01-11 08:32] LABS: Hematocrit 38.6 % (37.0-47.0); Hemoglobin 11.9 gm/dL (12.5-16.0); Mean Cell Volume 88.7 fl (78-100); Mean Corpuscular Hemoglobin 27.4 pg (27-31); Mean Corpuscular Hgb Conc 30.8 g/dl (32-36); Mean Platelet Volume 10.3 fl (8-12.5); Neutrophil # 15.4 K/mm3 (1.3-6.0); Neutrophil % 74.4 % (42-75.0); Platelet Count 224 K/mm3 (150-450); Red Blood Count 4.35 M/mm3 (4.2-5.4); Red Cell Distribution Width 17.8 % (11.5-14.0); White Blood Count 20.7 K/mm3 (4.0-10.5)
--- NOTE | 2021-01-11 08:41 | ERNOTE ---
Neuro HPI ER Record Date of Service: 01/11/21 Presenting Symptoms: other - mental status change Time Seen by Provider: 01/11/21 08:04 Source: EMS Exam Limitations: clinical condition Immunizations: IMMUNIZATION HX Immunizations Up to Date Yes History of Influenza Vaccine Yes Hx Pneumococcal Vaccination No Allergies/Adverse Reactions: Allergies Allergy/AdvReac Type Severity Reaction Status Date / Time latex Allergy Unknown Verified 12/30/20 11:32 Penicillins Allergy Unknown Verified 12/30/20 11:32 Sulfa (Sulfonamide Allergy Unknown Verified 12/30/20 11:32 Antibiotics) tuberculin, purified protein Allergy Unknown Verified 12/30/20 11:32 deriva [From Aplisol] Home Medications: HOME MEDICATIONS Acetaminophen 500 mg PO QID PRN 09/11/20 [Last Taken Unknown] Albuterol Sulfate [Albuterol Sulfate 0.63 MG/3ML] 0.63 mg IH Q4H PRN 09/11/20 [Last Taken Unknown] Aspirin 325 mg PO DAILY 09/11/20 [Last Taken Unknown] Baclofen 20 mg PO TID 09/11/20 [Last Taken Unknown] Bisacodyl [Women's Laxative] 10 mg PO DAILY PRN 09/11/20 [Last Taken Unknown] Bismuth Subsalicylate [Pepto-Bismol] 15 ml PO Q6H PRN 09/11/20 [Last Taken Unknown] Carboxymethylcellulose Sodium [Refresh Tears] 1 drp OP Q6H PRN 09/11/20 [Last Taken Unknown] Cholecalciferol (Vitamin D3) [Vitamin D3] 125 mcg PO DAILY 09/11/20 [Last Taken Unknown] Duloxetine HCl 90 mg PO DAILY 09/11/20 [Last Taken Unknown] Fluticasone Propion/Salmeterol [Fluticasone-Salmeterol 250-50] 1 ea IH BID 09/11/20 [Last Taken Unknown] Ipratropium/Albuterol Sulfate [Combivent Respimat 20-100 Mcg] 1 puff IH QID 09/11/20 [Last Taken Unknown] Krill Oil 500 mg PO DAILY 09/11/20 [Last Taken Unknown] Loperamide HCl [Anti-Diarrheal] 2 mg PO BID PRN 09/11/20 [Last Taken Unknown] Magnesium Hydroxide [Milk Of Magnesia] 30 ml PO DAILY PRN 09/11/20 [Last Taken Unknown] Melatonin 3 mg PO HS 09/11/20 [Last Taken Unknown] Methenamine Hippurate 1 gm PO BID 09/11/20 [Last Taken Unknown] Mirtazapine 45 mg PO HS 09/11/20 [Last Taken Unknown] Montelukast Sodium 10 mg PO DAILY 09/11/20 [Last Taken Unknown] Naproxen [Naprosyn] 500 mg PO BID 09/11/20 [Last Taken Unknown] Omeprazole 20 mg PO DAILY 09/11/20 [Last Taken Unknown] Oxycodone HCl/Acetaminophen [Endocet 10-325 mg Tablet] 1 ea PO BID PRN 09/11/20 [Last Taken Unknown] Oxymetazoline HCl [Nasal [place]] 2 spray NS Q4H PRN 09/11/20 [Last Taken Unknown] Polyethylene Glycol 3350 [Miralax] 17 gm PO DAILY PRN 09/11/20 [Last Taken Unknown] Polyvinyl Alcohol [Artificial Tears] 1 drp OP Q4H PRN 09/11/20 [Last Taken Unknown] Pramipexole Di-HCl [Pramipexole Dihydrochloride] 0.125 mg PO HS 09/11/20 [Last Taken Unknown] Pregabalin [Lyrica] 100 mg PO BID 09/11/20 [Last Taken Unknown] Sennosides/Docusate Sodium [Senna-S 8.6-50 mg Tablet] 1 ea PO BID 09/11/20 [Last Taken Unknown] Simvastatin 80 mg PO HS 09/11/20 [Last Taken Unknown] Topiramate [Topamax] 25 mg PO BID 09/11/20 [Last Taken Unknown] Vit A/Vit C/Vit E/Zinc/Copper [Preservision Areds Tablet] 1 ea PO BID 09/11/20 [Last Taken Unknown] Vitamin B Complex Vit C No.3 [B Complex with Vitamin C] 1 ea PO DAILY 09/11/20 [Last Taken Unknown] guaiFENesin [Robafen] 5 ml PO TID PRN 09/11/20 [Last Taken Unknown] metFORMIN HCL [Metformin HCl] 500 mg PO DAILY 09/11/20 [Last Taken Unknown] Fluticasone Propion/Salmeterol [Advair 250-50 Diskus] 1 puff IH BID 12/11/20 [Last Taken Unknown] Gabapentin 200 mg PO HS 12/11/20 [Last Taken Unknown] Amlodipine Besylate 10 mg PO DAILY 01/11/21 [Last Taken Unknown] Cetirizine HCl [Zyrtec] 10 mg PO DAILY 01/11/21 [Last Taken Unknown] Furosemide [Lasix] 40 mg PO DAILY 01/11/21 [Last Taken Unknown] Potassium Chloride [Klor-Con] 20 meq PO DAILY 01/11/21 [Last Taken Unknown] predniSONE [Prednisone] 20 mg PO DAILY 01/11/21 [Last Taken Unknown] traZODone HCL [Desyrel] 25 mg PO HS PRN 01/11/21 [Last Taken Unknown] - History of Present Illness Narrative: Patient presents to the ED via EMS from the custodial. No history is available from her. She apparently lives at [facility]. Had just returned there from a hospitalization at [facility] for pneumonia and sepsis. Last night was at baseline. This am noted to be not responding normally for her. No taking like normal. No history is available from her. She will open her eyes and respond to my exam but not in a fashion that allows any history to be obtained/. Onset: other - last at baseline last evening - Character of Deficits Additional Deficits: Present: other - altered mental status Associated Symptoms: Reports: other - unknown Prior Treament: Reports: recently seen, recently hospitalized Review of Systems - Narrative Narrative: Unobtainable ROS d/t patient condition Medical History (Last Reviewed 01/11/21 @ 08:38 by Raza Mercado MD) Elevated troponin (Acute) Metabolic encephalopathy (Resolved) Hypernatremia (Resolved) UTI (urinary tract infection) (Acute) Confusion (Acute) Pneumonia (Acute) COPD (chronic obstructive pulmonary disease) (Chronic) Constipation (Chronic) Infectious encephalopathy (Resolved) History of muscle weakness (Acute) Hx of hemiplegia (Acute) L side History of COPD (Acute) Hx of hyperlipidemia (Acute) Hx of diabetes mellitus (Acute) History of anxiety (Acute) Surgical History: Surgical History (Last Reviewed 01/11/21 @ 08:38 by Raza Mercado MD) Surgical history unknown (Acute) Family History: Family History (Last Reviewed 01/11/21 @ 08:38 by Raza Mercado MD) Other No pertinent family history Social History: (Last Reviewed 06/09/21 @ 08:38 by Raza Mercado MD) Social History: custodial: Yes custodial comment: [employer] current occupational status: disabled Tobacco: Smoking Status: Unknown if ever smoked Substance Use: substance use type: unknown Physical Exam - Physical Exam General Appearance: Present: other - in bed eyes closed, no distress. When I touch her shoulder she opens her eyes but no vovalization. Head Exam: Present: normal inspection, no evidence of injury Eye Exam: Normal inspection: bilateral, PERRL: bilateral - 3mm Ears, Nose, Throat: Present: dry mucous membranes. Absent: pharyngeal erythema Neck: Present: normal inspection Respiratory: Present: no respiratory distress, normal breath sounds, lungs clear Cardiovascular/Chest: Present: regular rate, rhythm, normal peripheral pulses Gastrointestinal/Abdominal: Present: normal bowel sounds, soft, other - no apparent tenderness and no rigidity Back Exam: Present: other - difficult exam Extremity Exam: Present: other - no clear cellultiis noted Neurological Exam: Present: other - altered mental status, neuro exam compromised. Has prior stroke. Nursing has noticed some movements of right leg and arm but exam compromised at this time Skin Exam: Present: normal color, warm/dry Progress - Results and Orders Patient's Lab Results:: I have reviewed the patient's lab results. - Vital Signs Patient's Vital Signs:: I have reviewed the patient's vital signs. Vital Signs: Vital Signs 01/11/21 07:54 Temperature 37.1 C Pulse Rate 81 Respiratory Rate 13 Blood Pressure 117/73 O2 Sat by Pulse Oximetry 97 - EKG EKG #1 EKG read: Interp. by me EKG Comments: Paced rate 82. RBBB. Non-specific but no clear evidence of STEMI. - X-Ray X-Ray #1 X-Ray: chest Interpretation: Interp. by me X-ray Comments: I personally reviewed the CXR image as well as official radiology report. - CT/Ultrasound CT/Ultrasound Narrative: I reviewed the official radiology report for CT head. - Progress/Reassessment Chief Complaint: Altered Mental Status Progress Note-Subjective: 01/11/21 10:02 IV fluids given. IV ABx Levaquin given pending return of all labs. Once returned, no clear new overlying infection so IV Vanco given by scheduled. Nursing spoke to POA and described patient;'s condition. POA asked if he preferred patient to stay here or go back to [facility]. POA preferrs for patient to stay here. Given that I spoke with Dr Landon who saw the patient in the ED and will admit. Her Sx are likely infectious but a ne wstroke also cannot be completely ruled out. Departure Clinical Impression: Altered mental status, Leukocytosis, On antibiotic therapy - Departure Disposition: Still a patient Condition: Poor
[2021-01-11] MEDS ORDERED: LEVOFLOXACIN IN DEXTROSE 5 % 500 MG/100 ML BAG IV ONE (08:42)
[2021-01-11] MEDS ORDERED: HYDROCORTISONE SOD SUCCINATE 50 MG/ML VIAL IV ONE (08:42)
[2021-01-11 08:49] LABS: ALT 90 U/L (19-67); AST 26 U/L (0-48); Albumin * 3.1 gm/dl (3.4-5.0); Alkaline Phosphatase * 105 U/L (50-170); Anion Gap 11.7 mmol/L (6.8-13.8); BUN/Creatinine Ratio 26.6 (9.0-21.6); Bilirubin, Total 0.8 mg/dL (0.0-1.1); Blood Urea Nitrogen 29 mg/dL (3-23); Ca. Corrected For Albumin 8.8 mg/dL (8.4-10.2); Calcium * 8.4 mg/dL (7.9-10.9); Carbon Dioxide 30.6 mmol/L (24-32.6); Chloride 102 mmol/L (97-106); Glucose * 114 mg/dL (70-110); Potassium 3.3 mmol/L (3.4-4.6); Sodium 141 mmol/L (132-142); Total Protein 6.5 gm/dL (6.2-8.2); Troponin I Less than 0.017 ng/mL (0.00-0.10)
[2021-01-11 09:09] LABS: Urine Bilirubin Negative (NEGATIVE); Urine Blood Negative /ul (NEGATIVE); Urine Ketone Negative (NEGATIVE); Urine Nitrite Negative (NEGATIVE); Urine Protein Negative (NEGATIVE); Urine Specific Gravity 1.025 SP.GR. (1.005-1.010); Urine Urobilinogen Normal (NORMAL); Urine pH 5.5 pH (5.0-7.0)
[2021-01-11 09:12] LABS: Urine Appearance Clear (CLEAR); Urine Color Yellow
[2021-01-11 09:17] LABS: Urine Bacteria None Seen; Urine RBC None Seen /hpf (0-5); Urine WBC None Seen /hpf (0-5); Urine Yeast TRACE
[2021-01-11] MEDS ORDERED: VANCOMYCIN/WATER FOR INJ (PEG) 1 GM/200 ML BAG IV ONE (09:28)
--- NOTE | 2021-01-11 10:15 | HP ---
Chief Complaint - Chief Complaint Date of Service: 01/11/21 Time of Service: 09:47 Chief Complaint: Altered mental status day History of Present Illness: 80-year-old female with a past medical history of COPD on 2 L of oxygen at all the times, diabetes mellitus, left hemiplegia, hyperlipidemia, infectious encephalopathy, metabolic encephalopathy, pneumonia, UTI, confusion, constipation presents from [facility] with complaints of altered mental status. [place] the [place] [facility] the patient was admitted to [facility] for pneumonia last week. She was discharged from [facility] 2 days ago on IV vancomycin through a PICC line. Her POA is her son Jad who wants limited intervention, no intubation, only medications. In the ER today she was found to have leukocytosis 20.7, her WBCs per our records have been elevated for most of this year, 2020 and were running between 14.1 and 22.6. Her vitals are stable. She has mild hypokalemia at 3.3, UA is negative, Covid is negative, mild decrease of her GFR from 60-52. Chest x-ray showed previously identified bilateral pneumonia on 12/30/2020 has significant interval improvement, right PICC line. CT head showed no acute intracranial abnormality. When I saw her in the ER she was responsive and verbal. She was alert and oriented to person, place and time. She told me her son's name was Jad, the year is 2020 her birthday and that she was currently in the hospital. Her mentation would wax and wane and at times she would closed her eyes and not answer my questions. She was started on Levaquin in the ER and vancomycin was continued. She is being admitted for observation of altered mental status. Medical History (Last Reviewed 01/11/21 @ 08:38 by Raza Mercado MD) Elevated troponin (Acute) Metabolic encephalopathy (Acute) Hypernatremia (Resolved) UTI (urinary tract infection) (Acute) Confusion (Acute) Pneumonia (Acute) COPD (chronic obstructive pulmonary disease) (Chronic) Constipation (Chronic) Infectious encephalopathy (Resolved) History of muscle weakness (Acute) Hx of hemiplegia (Chronic) L side History of COPD (Acute) Hx of hyperlipidemia (Chronic) Hx of diabetes mellitus (Chronic) History of anxiety (Chronic) Surgical History: Surgical History (Last Reviewed 01/11/21 @ 08:38 by Raza Mercado MD) Surgical history unknown (Acute) Family History: Family History (Last Reviewed 01/11/21 @ 08:38 by Raza Mercado MD) Other No pertinent family history Social History: (Last Reviewed 01/11/21 @ 08:38 by Raza Mercado MD) Social [place] [facility] [facility] [place] current occupational status: disabled Tobacco: Smoking Status: Unknown if ever smoked Substance Use: substance use type: unknown Review Of Systems (GEN) - Review of Systems Generalized/Overall Review: Absent: Fever Respiratory: Present: Shortness of Breath Cardiac: Present: Chest Pain Abdominal: Absent: Abdominal Pain Misc: All systems neg except as marked Immunizations: IMMUNIZATION HX Immunizations Up to Date Yes History of Influenza Vaccine Yes Hx Pneumococcal Vaccination No Allergies/Adverse Reactions: Allergies Allergy/AdvReac Type Severity Reaction Status Date / Time latex Allergy Unknown Verified 12/30/20 11:32 Penicillins Allergy Unknown Verified 12/30/20 11:32 Sulfa (Sulfonamide Allergy Unknown Verified 12/30/20 11:32 Antibiotics) tuberculin, purified protein Allergy Unknown Verified 12/30/20 11:32 deriva [From Aplisol] Home Medications: HOME MEDICATIONS Acetaminophen 500 mg PO QID PRN 09/11/20 [Last Taken Unknown] Albuterol Sulfate [Albuterol Sulfate 0.63 MG/3ML] 0.63 mg IH Q4H PRN 09/11/20 [Last Taken Unknown] Aspirin 81 mg PO DAILY 09/11/20 [Last Taken Unknown] Baclofen 20 mg PO TID 09/11/20 [Last Taken Unknown] Bisacodyl [Women's Laxative] 10 mg PO DAILY PRN 09/11/20 [Last Taken Unknown] Bismuth Subsalicylate [Pepto-Bismol] 30 ml PO QID PRN 09/11/20 [Last Taken Unknown] Carboxymethylcellulose Sodium [Refresh Tears] 1 drp OP Q6H PRN 09/11/20 [Last Taken Unknown] Cholecalciferol (Vitamin D3) [Vitamin D3] 125 mcg PO DAILY 09/11/20 [Last Taken Unknown] Ipratropium/Albuterol Sulfate [Combivent Respimat 20-100 Mcg] 1 puff IH QID 09/11/20 [Last Taken Unknown] Krill Oil 500 mg PO DAILY 09/11/20 [Last Taken Unknown] Loperamide HCl [Anti-Diarrheal] 2 mg PO BID PRN 09/11/20 [Last Taken Unknown] Magnesium Hydroxide [Milk Of Magnesia] 30 ml PO DAILY PRN 09/11/20 [Last Taken Unknown] Melatonin 6 mg PO HS 09/11/20 [Last Taken Unknown] Methenamine Hippurate 1 gm PO BID 09/11/20 [Last Taken Unknown] Mirtazapine 45 mg PO HS 09/11/20 [Last Taken Unknown] Montelukast Sodium 10 mg PO HS 09/11/20 [Last Taken Unknown] Naproxen [Naprosyn] 500 mg PO BID 09/11/20 [Last Taken Unknown] Omeprazole 20 mg PO DAILY 09/11/20 [Last Taken Unknown] Oxycodone HCl/Acetaminophen [Endocet 10-325 mg Tablet] 1 ea PO BID 09/11/20 [Last Taken Unknown] Polyethylene Glycol 3350 [Miralax] 17 gm PO DAILY PRN 09/11/20 [Last Taken Unknown] Polyvinyl Alcohol [Artificial Tears] 1 drp OP Q4H PRN 09/11/20 [Last Taken Unknown] Pramipexole Di-HCl [Pramipexole Dihydrochloride] 0.125 mg PO HS 09/11/20 [Last Taken Unknown] Pregabalin [Lyrica] 100 mg PO BID 09/11/20 [Last Taken Unknown] Sennosides/Docusate Sodium [Senna-S 8.6-50 mg Tablet] 1 ea PO BID 09/11/20 [Last Taken Unknown] Simvastatin 80 mg PO HS 09/11/20 [Last Taken Unknown] Topiramate [Topamax] 25 mg PO BID 09/11/20 [Last Taken Unknown] Vit A/Vit C/Vit E/Zinc/Copper [Preservision Areds Tablet] 1 ea PO BID 09/11/20 [Last Taken Unknown] Vitamin B Complex Vit C No.3 [B Complex with Vitamin C] 1 ea PO DAILY 09/11/20 [Last Taken Unknown] metFORMIN HCL [Metformin HCl] 500 mg PO BID 09/11/20 [Last Taken Unknown] Fluticasone Propion/Salmeterol [Advair 250-50 Diskus] 1 puff IH BID 12/11/20 [Last Taken Unknown] Amlodipine Besylate 10 mg PO DAILY 01/11/21 [Last Taken Unknown] Cetirizine HCl [Zyrtec] 10 mg PO DAILY 01/11/21 [Last Taken Unknown] DULoxetine HCL [Cymbalta] 30 mg PO DAILY 01/11/21 [Last Taken Unknown] Duloxetine HCl [Drizalma Sprinkle] 60 mg PO DAILY 01/11/21 [Last Taken Unknown] Fluticasone Propionate [Flonase] 1 spray NS DAILY 01/11/21 [Last Taken Unknown] Furosemide [Lasix] 40 mg PO DAILY 01/11/21 [Last Taken Unknown] Gabapentin [Neurontin] 600 mg PO TID 01/11/21 [Last Taken Unknown] Guaifen/Dextromethorphan/PE [Robafen Cf Liquid] 10 ml PO QID PRN 01/11/21 [Last Taken Unknown] Potassium Chloride [Klor-Con] 20 meq PO DAILY 01/11/21 [Last Taken Unknown] Vit C/E/Zn/Coppr/Lutein/Zeaxan [Preservision Areds 2 Softgel] 1 ea PO DAILY 01/11/21 [Last Taken Unknown] predniSONE [Prednisone] 20 mg PO DAILY 01/11/21 [Last Taken Unknown] traZODone HCL [Desyrel] 25 mg PO HS PRN 01/11/21 [Last Taken Unknown] Exam - Exam Vital Signs: Vital Signs - Last Taken Temp 37.1 C 01/11/21 07:54 Pulse 79 01/11/21 09:15 Resp 14 01/11/21 09:15 BP 118/65 01/11/21 09:15 Pulse Ox 96 01/11/21 09:15 Constitutional: Present: Oriented x3, Well developed, Well nourished, No distress, Elderly ENT Exam: Present: hearing grossly normal, dry mucous membranes Eye Exam: bilateral eye: normal inspection, PERRL - Pupils equal round, unable to examine light reflex in right eye due to patient refusing to open it, left eye light reflex intact Neck: Present: non-tender, supple. Absent: lymphadenopathy (R), lymphadenopathy (L) Respiratory: Present: lungs clear, no respiratory distress, no accessory muscle use, No wheezing. Absent: crackles, rhonchi Cardiovascular/Chest: Present: normal peripheral pulses, regular rate, rhythm, no edema, no murmur Peripheral Pulses: dorsalis-pedis (R): 1+, dorsalis-pedis (L): 1+ Abdomen: Present: Normal bowel sounds, soft, nontender Extremity: Present: no pedal edema Skin Exam: Present: normal color, warm/dry Neurologic: Present: other - Weakness of left upper and lower extremity. Moves right upper and lower extremities spontaneously Appearance: Present: appropriate appearance Eye contact: Present: cooperative Thoughts: Present: normal mood /affect Diagnostic Studies: Abnormal Lab Results 01/11/21 01/11/21 01/11/21 Range/Units 08:20 08:20 08:20 WBC 20.7 H D (4.0-10.5) K/mm3 Hgb 11.9 L (12.5-16.0) gm/dL MCHC 30.8 L (32-36) g/dl RDW 17.8 H (11.5-14.0) % Immature Gran % (Auto) 1.00 H (0.001-0.429) % Immature Gran # (Auto) 0.21 H (0.000-0.0310) K/mm3 Lymphocytes % 18.0 L (20-51) % Neutrophils # 15.4 H (1.3-6.0) K/mm3 Lymphocytes # 3.72 H (1.5-3.5) k/mm3 Monocytes # 1.1 H (0.0-1.0) k/mm3 pCO2 (32.0-45.0) mmHg HCO3 (21.0-28.0) mmol/L Total CO2 (19.0-24.0) mmol/L Base Excess (-2.0-3.0) mmol/L Potassium 3.3 L (3.4-4.6) mmol/L BUN 29 H (3-23) mg/dL Est GFR (Non-Af Amer) 52 L (60-130) mL/min BUN/Creatinine Ratio 26.6 H (9.0-21.6) Random Glucose 114 H (70-110) mg/dL Lactic Acid, Venous 0.3 L (0.4-2.0) mmol/L ALT 90 H (19-67) U/L Albumin 3.1 L (3.4-5.0) gm/dl Ur Epithelial Cells (0-5) /hpf 01/11/21 01/11/21 Range/Units 08:35 08:47 WBC (4.0-10.5) K/mm3 Hgb (12.5-16.0) gm/dL MCHC (32-36) g/dl RDW (11.5-14.0) % Immature Gran % (Auto) (0.001-0.429) % Immature Gran # (Auto) (0.000-0.0310) K/mm3 Lymphocytes % (20-51) % Neutrophils # (1.3-6.0) K/mm3 Lymphocytes # (1.5-3.5) k/mm3 Monocytes # (0.0-1.0) k/mm3 pCO2 46.7 H (32.0-45.0) mmHg HCO3 29.3 H (21.0-28.0) mmol/L Total CO2 30.8 H (19.0-24.0) mmol/L Base Excess 4.1 H (-2.0-3.0) mmol/L Potassium (3.4-4.6) mmol/L BUN (3-23) mg/dL Est GFR (Non-Af Amer) (60-130) mL/min BUN/Creatinine Ratio (9.0-21.6) Random Glucose (70-110) mg/dL Lactic Acid, Venous (0.4-2.0) mmol/L ALT (19-67) U/L Albumin (3.4-5.0) gm/dl Ur Epithelial Cells 5-10 H (0-5) /hpf Laboratory Results WBC 20.7 K/mm3 (4.0-10.5) H D 01/11/21 08:20 RBC 4.35 M/mm3 (4.2-5.4) 01/11/21 08:20 Hgb 11.9 gm/dL (12.5-16.0) L 01/11/21 08:20 Hct 38.6 % (37.0-47.0) 01/11/21 08:20 MCV 88.7 fl (78-100) 01/11/21 08:20 MCH 27.4 pg (27-31) 01/11/21 08:20 MCHC 30.8 g/dl (32-36) L 01/11/21 08:20 RDW 17.8 % (11.5-14.0) H 01/11/21 08:20 Plt Count 224 K/mm3 (150-450) 01/11/21 08:20 MPV 10.3 fl (8-12.5) 01/11/21 08:20 Immature Gran % (Auto) 1.00 % (0.001-0.429) H 01/11/21 08:20 Immature Gran # (Auto) 0.21 K/mm3 (0.000-0.0310) H 01/11/21 08:20 Neutrophils % 74.4 % (42-75.0) 01/11/21 08:20 Lymphocytes % 18.0 % (20-51) L 01/11/21 08:20 Monocytes % 5.5 % (0.0-9) 01/11/21 08:20 Eosinophils % 0.9 % (0.0-3.0) 01/11/21 08:20 Basophils % 0.2 % (0.0-1.0) 01/11/21 08:20 Nucleated RBC % 0.0 k/mm3 (0-1) 01/11/21 08:20 Neutrophils # 15.4 K/mm3 (1.3-6.0) H 01/11/21 08:20 Lymphocytes # 3.72 k/mm3 (1.5-3.5) H 01/11/21 08:20 Monocytes # 1.1 k/mm3 (0.0-1.0) H 01/11/21 08:20 Eosinophils # 0.2 k/mm3 (0.0-0.7) 01/11/21 08:20 Absolute Basophils 0.0 k/mm3 (0.0-0.1) 01/11/21 08:20 pCO2 46.7 mmHg (32.0-45.0) H 01/11/21 08:47 pO2 85.8 mmHg (83.0-108.0) 01/11/21 08:47 HCO3 29.3 mmol/L (21.0-28.0) H 01/11/21 08:47 Total CO2 30.8 mmol/L (19.0-24.0) H 01/11/21 08:47 Base Excess 4.1 mmol/L (-2.0-3.0) H 01/11/21 08:47 ABG pH 7.42 (7.35-7.45) 01/11/21 08:47 ABG O2 Sat (Measured) 96.5 % (94.0-98.0) 01/11/21 08:47 Sodium 141 mmol/L (132-142) 01/11/21 08:20 Plasma Sodium 141 mmol/L (130-142) 01/11/21 08:20 Potassium 3.3 mmol/L (3.4-4.6) L 01/11/21 08:20 Chloride 102 mmol/L (97-106) 01/11/21 08:20 Carbon Dioxide 30.6 mmol/L (24-32.6) 01/11/21 08:20 Anion Gap 11.7 mmol/L (6.8-13.8) 01/11/21 08:20 BUN 29 mg/dL (3-23) H 01/11/21 08:20 Creatinine 1.09 mg/dL (0.4-1.4) 01/11/21 08:20 Est GFR (Non-Af Amer) 52 mL/min (60-130) L 01/11/21 08:20 BUN/Creatinine Ratio 26.6 (9.0-21.6) H 01/11/21 08:20 Random Glucose 114 mg/dL (70-110) H 01/11/21 08:20 Lactic Acid, Venous 0.3 mmol/L (0.4-2.0) L 01/11/21 08:20 Calcium 8.4 mg/dL (7.9-10.9) 01/11/21 08:20 Calcium Adj for Albumin 8.8 mg/dL (8.4-10.2) 01/11/21 08:20 Total Bilirubin 0.8 mg/dL (0.0-1.1) 01/11/21 08:20 AST 26 U/L (0-48) 01/11/21 08:20 ALT 90 U/L (19-67) H 01/11/21 08:20 Alkaline Phosphatase 105 U/L (50-170) 01/11/21 08:20 Ammonia Less than 17.0 mcmol/L (11-35) 01/11/21 08:20 Troponin I Less than 0.017 ng/mL (0.00-0.10) 01/11/21 08:20 Total Protein 6.5 gm/dL (6.2-8.2) 01/11/21 08:20 Albumin 3.1 gm/dl (3.4-5.0) L 01/11/21 08:20 Urine Color Yellow 01/11/21 08:35 Urine Appearance Clear (CLEAR) 01/11/21 08:35 Urine pH 5.5 pH (5.0-7.0) 01/11/21 08:35 Ur Specific [place] 1.025 SP.GR. (1.005-1.010) 01/11/21 08:35 Urine Protein Negative mg/dL (NEGATIVE) 01/11/21 08:35 Urine Glucose (UA) Negative mg/dL (NEGATIVE) 01/11/21 08:35 Urine Ketones Negative mg/dL (NEGATIVE) 01/11/21 08:35 Urine Blood Negative /ul (NEGATIVE) 01/11/21 08:35 Urine Nitrate Negative (NEGATIVE) 01/11/21 08:35 Urine Bilirubin Negative mg/dl (NEGATIVE) 01/11/21 08:35 Urine Urobilinogen Normal EU/dl (NORMAL) 01/11/21 08:35 Ur Leukocyte Esterase Negative /ul (NEGATIVE) 01/11/21 08:35 Urine RBC None seen /hpf (0-5) 01/11/21 08:35 Urine WBC None seen /hpf (0-5) 01/11/21 08:35 Ur Epithelial Cells 5-10 /hpf (0-5) H 01/11/21 08:35 Urine Bacteria None seen (NONE) 01/11/21 08:35 Urine Yeast Trace (NONE) 01/11/21 08:35 Urine Culture Comments No culture indicated 01/11/21 08:35 SARS-CoV-2 (PCR) Not detected (NotDetected) 01/11/21 08:27 Assessment/Plan - Narrative Narrative: 80-year-old female with a past medical history of COPD on 2 L of oxygen at all the times, diabetes mellitus, left hemiplegia, hyperlipidemia, infectious encephalopathy, metabolic encephalopathy, pneumonia, UTI, confusion, constipation presents from [facility] with complaints of altered mental status. [place] the [place] [facility] the patient was admitted to [facility] for pneumonia last week. She was discharged from [facility] 2 days ago on IV vancomycin through a PICC line. Her POA is her son Jad who wants limited intervention, no intubation, only medications. In the ER today she was found to have leukocytosis 20.7, her WBCs per our records have been elevated for most of this year, 2020 and were running between 14.1 and 22.6. Her vitals are stable. She has mild hypokalemia at 3.3, UA is negative, Covid is negative, mild decrease of her GFR from 60-52. Chest x-ray showed previously identified bilateral pneumonia on 12/30/2020 has significant interval improvement, right PICC line. CT head showed no acute intracranial abnormality. When I saw her in the ER she was responsive and verbal. She was alert and oriented to person, place and time. She told me her son's name was Jad, the year is 2018 her birthday and that she was currently in the hospital. Her mentation would wax and wane and at times she would closed her eyes and not answer my questions. She was started on Levaquin in the ER and vancomycin was continued. She is being admitted for observation of altered mental status. Blood cultures from 12/31/2019 in our emergency room were positive for MRSA. Is unclear how long she has been on the vancomycin. Continue vancomycin for now. Plan #1 continue with vancomycin and Levaquin #2 resume home medications for comorbidities when her mentation improves #3 CBC and CMP in the morning #4 follow-up blood cultures - Assessment/Plan (1) Hypokalemia Problem: Acute (2) Pneumonia Problem: Acute (3) Metabolic encephalopathy Problem: Acute (4) COPD (chronic obstructive pulmonary disease) Problem: Chronic (5) Hx of hemiplegia Problem: Chronic (6) Hx of hyperlipidemia Problem: Chronic (7) Hx of diabetes mellitus Problem: Chronic (8) History of anxiety Problem: Chronic (9) Supplemental oxygen dependent Problem: Chronic
[2021-01-11] MEDS ORDERED: POTASSIUM CHLORIDE 20 MEQ in NORMAL SALINE 1,000 ML IV SCH (14:15)
[2021-01-11] MEDS ORDERED: traZODone HCL 50 MG TABLET PO PRN (16:05)
[2021-01-11] MEDS: BACLOFEN 10 MG TABLET PO SCH (17:49)
[2021-01-11] MEDS: METHENAMINE MANDELATE 1 GM TABLET PO SCH (20:49)
[2021-01-11] MEDS: SENNOSIDES/DOCUSATE SODIUM 1 TAB TABLET PO SCH (20:50)
[2021-01-11] MEDS: TOPIRAMATE 50 MG TABLET PO SCH (20:51)
[2021-01-11] MEDS ORDERED: MELATONIN 3,000 MCG TABLET PO SCH (21:00)
[2021-01-11] MEDS ORDERED: MIRTAZAPINE 15 MG TABLET PO SCH (21:00)
[2021-01-11] MEDS ORDERED: SIMVASTATIN 40 MG TABLET PO SCH (21:00)
[2021-01-11] MEDS: VANCOMYCIN/WATER FOR INJ (PEG) 1 GM/200 ML BAG IV SCH (22:58)
[2021-01-12 06:54] LABS: Hematocrit 34.4 % (37.0-47.0); Hemoglobin 10.4 gm/dL (12.5-16.0); Mean Cell Volume 89.6 fl (78-100); Mean Corpuscular Hemoglobin 27.1 pg (27-31); Mean Corpuscular Hgb Conc 30.2 g/dl (32-36); Mean Platelet Volume 10.8 fl (8-12.5); Neutrophil # 13.3 K/mm3 (1.3-6.0); Neutrophil % 76.4 % (42-75.0); Platelet Count 191 K/mm3 (150-450); Red Blood Count 3.84 M/mm3 (4.2-5.4); Red Cell Distribution Width 17.6 % (11.5-14.0); White Blood Count 17.4 K/mm3 (4.0-10.5)
[2021-01-12] MEDS ORDERED: PANTOPRAZOLE SODIUM 20 MG TABLET.DR PO SCH (07:00)
[2021-01-12] MEDS: ACETAMINOPHEN 500 MG TABLET PO PRN ×2 (07:00→13:09)
[2021-01-12 07:24] LABS: Albumin * 2.6 gm/dl (3.4-5.0); Anion Gap 9.8 mmol/L (6.8-13.8); BUN/Creatinine Ratio 26.3 (9.0-21.6); Bilirubin, Total 0.8 mg/dL (0.0-1.1); Calcium * 8.2 mg/dL (7.9-10.9); Carbon Dioxide 29.4 mmol/L (24-32.6); Potassium 3.2 mmol/L (3.4-4.6); Total Protein 5.8 gm/dL (6.2-8.2)
[2021-01-12] MEDS ORDERED: ASPIRIN 81 MG TABLET.DR PO SCH (09:00)
[2021-01-12] MEDS ORDERED: FLUTICASONE PROPIONATE 120 SPRAY INHALER NS SCH (09:00)
[2021-01-12] MEDS ORDERED: DULoxetine HCL 20 MG CAPSULE.SA PO SCH (09:00)
[2021-01-12] MEDS ORDERED: predniSONE 20 MG TABLET PO SCH (09:00)
[2021-01-12] MEDS ORDERED: DULoxetine HCL 30 MG CAPSULE.SA PO SCH (09:00)
[2021-01-12] MEDS ORDERED: amLODIPine BESYLATE 10 MG TABLET PO SCH (09:00)
[2021-01-12] MEDS ORDERED: FUROSEMIDE 40 MG TABLET PO SCH (09:00)
[2021-01-12] MEDS ORDERED: POTASSIUM CHLORIDE 20 MEQ TABLET.SA PO SCH (09:00)
[2021-01-12] MEDS: METHENAMINE MANDELATE 1 GM TABLET PO SCH (10:04)
[2021-01-12] MEDS: BACLOFEN 10 MG TABLET PO SCH ×2 (10:04→15:53)
[2021-01-12] MEDS: SENNOSIDES/DOCUSATE SODIUM 1 TAB TABLET PO SCH (10:04)
[2021-01-12] MEDS: TOPIRAMATE 50 MG TABLET PO SCH (10:05)
--- NOTE | 2021-01-12 10:31 | DS ---
(1) Hypokalemia Problem: Acute (2) Pneumonia Problem: Acute (3) Metabolic encephalopathy Problem: Acute (4) COPD (chronic obstructive pulmonary disease) Problem: Chronic (5) Hx of hemiplegia Problem: Chronic (6) Hx of hyperlipidemia Problem: Chronic (7) Hx of diabetes mellitus Problem: Chronic (8) History of anxiety Problem: Chronic (9) Supplemental oxygen dependent Problem: Chronic (10) MRSA bacteremia Problem: Acute (11) Leukocytosis Problem: Acute Hospital Course: 80-year-old female with a past medical history of COPD on 2 L of oxygen at all the times, diabetes mellitus, left hemiplegia, hyperlipidemia, infectious encephalopathy, metabolic encephalopathy, pneumonia, UTI, confusion, constipa tion presents from [facility] with complaints of altered mental status. Per the retirement the patient was admitted to [facility] for pneumonia last week. She was discharged from [facility] 2 days ago on IV vancomycin through a PICC line. Her POA is her son Jad who wants limited intervention, no intubation, only medications. In the ER today she was found to have leukocytosis 20.7, her WBCs per our records have been elevated for most of this year, 2020 and were running between 14.1 and 22.6. Her vitals are stable. She has mild hypokalemia at 3.3, UA is negative, Covid is negative, mild decrease of her GFR from 60-52. Chest x-ray showed previously identified bilateral pneumonia on 12/30/2020 has significant interval improvement, right PICC line. CT head showed no acute intracranial abnormality. When I saw her in the ER she was responsive and verbal. She was alert and oriented to person, place and time. She told me her son's name was Jad, the year is 2020 her birthday and that she was currently in the hospital. Her mentation would wax and wane and at times she would closed her eyes and not answer my questions. She was started on Levaquin in the ER and vancomycin was continued. She is being admitted for observation of altered mental status. Blood cultures from 12/31/2019 in our emergency room were positive for MRSA. Is unclear how long she has been on the vancomycin. Per the retirement she is to continue vancomycin until January 17, 2021. Today she is doing much better. She is alert and oriented x3 and is able to hold a conversation. Speech is advance her diet to mechanical soft with thin liquids. Her WBC count has dropped from 20-17. She had an episode of left- sided sharp chest pain this morning that resolved with Tylenol. Troponin was negative. I will discontinue Levaquin and continue her on vancomycin. She is stable to be discharged home today. Procedures Performed: none Results and Findings: Pending Mircobiology Results 01/11/21 09:05 Blood Blood Culture - Preliminary NO GROWTH 24 HOURS 01/11/21 08:20 Blood Blood Culture - Preliminary NO GROWTH 24 HOURS Lab Pending Results 01/11/21 08:20: WBC 20.7 H D, RBC 4.35, Hgb 11.9 L, Hct 38.6, MCV 88.7, MCH 27.4, MCHC 30.8 L, RDW 17.8 H, Plt Count 224, MPV 10.3, Immature Gran % (Auto) 1.00 H, Immature Gran # (Auto) 0.21 H, Neutrophils % 74.4, Lymphocytes % 18.0 L, Monocytes % 5.5, Eosinophils % 0.9, Basophils % 0.2, Nucleated RBC % 0.0, Neutrophils # 15.4 H, Lymphocytes # 3.72 H, Monocytes # 1.1 H, Eosinophils # 0.2, Absolute Basophils 0.0 01/11/21 08:20: Sodium 141, Plasma Sodium 141, Potassium 3.3 L, Chloride 102, Carbon Dioxide 30.6, Anion Gap 11.7, BUN 29 H, Creatinine 1.09, Est GFR (Non-Af Amer) 52 L, BUN/Creatinine Ratio 26.6 H, Random Glucose 114 H, Calcium 8.4, Calcium Adj for Albumin 8.8, Total Bilirubin 0.8, AST 26, ALT 90 H, Alkaline Phosphatase 105, Troponin I Less than 0.017, Total Protein 6.5, Albumin 3.1 L 01/11/21 08:20: Lactic Acid, Venous 0.3 L 01/11/21 08:20: Ammonia Less than 17.0 01/11/21 08:27: SARS-CoV-2 (PCR) Not detected 01/11/21 08:35: Urine Color Yellow, Urine Appearance Clear, Urine pH 5.5, Ur Specific [place] 1.025, Urine Protein Negative, Urine Glucose (UA) Negative, Urine Ketones Negative, Urine Blood Negative, Urine Nitrate Negative, Urine Bilirubin Negative, Urine Urobilinogen Normal, Ur Leukocyte Esterase Negative, Urine RBC None seen, Urine WBC None seen, Ur Epithelial Cells 5-10 H, Urine Bacteria None seen, Urine Yeast Trace, Urine Culture Comments No culture indicated 01/11/21 08:47: pCO2 46.7 H, pO2 85.8, HCO3 29.3 H, Total CO2 30.8 H, Base Excess 4.1 H, ABG pH 7.42, ABG O2 Sat (Measured) 96.5 01/12/21 06:18: WBC 17.4 H, RBC 3.84 L, Hgb 10.4 L, Hct 34.4 L, MCV 89.6, MCH 27.1, MCHC 30.2 L, RDW 17.6 H, Plt Count 191, MPV 10.8, Immature Gran % (Auto) 1.00 H, Immature Gran # (Auto) 0.17 H, Neutrophils % 76.4 H, Lymphocytes % 14.4 L, Monocytes % 7.1, Eosinophils % 1.0, Basophils % 0.1, Nucleated RBC % 0.0, Neutrophils # 13.3 H, Lymphocytes # 2.52, Monocytes # 1.2 H, Eosinophils # 0.2, Absolute Basophils 0.0 01/12/21 06:18: Sodium 144 H, Plasma Sodium 144 H, Potassium 3.2 L, Chloride 108 H, Carbon Dioxide 29.4, Anion Gap 9.8, BUN 20, Creatinine 0.76, Est GFR (Non-Af Amer) 78 D, BUN/Creatinine Ratio 26.3 H, Random Glucose 109, Calcium 8.2, Calcium Adj for Albumin 9.0, Total Bilirubin 0.8, AST 18, ALT 64, Alkaline Phosphatase 95, Total Protein 5.8 L, Albumin 2.6 L 01/12/21 06:18: Troponin I Less than 0.017 Discharge Location: [facility] Disposition: SNF Condition: Fair Level of Care: SNF Discharge Activity: Activity as tolerated Discharge Diet: Consistent carbs Care Home Therapy: Physical Therapy, Occupation Therapy, Speech Therapy Referrals: Edel Ramirez DO [Primary Care Provider] - Additional Patient Instructions (free text): From [facility], Please call and fax discharge information to them. Complete Home Medications List: Complete Home Medication List: Acetaminophen 500 mg PO QID PRN 09/11/20 Albuterol Sulfate [Albuterol Sulfate 0.63 MG/3ML] 0.63 mg IH Q4H PRN 09/11/20 Aspirin 81 mg PO DAILY 09/11/20 Baclofen 20 mg PO TID 09/11/20 Bisacodyl [Women's Laxative] 10 mg PO DAILY PRN 09/11/20 Bismuth Subsalicylate [Pepto-Bismol] 30 ml PO QID PRN 09/11/20 Carboxymethylcellulose Sodium [Refresh Tears] 1 drp OP Q6H PRN 09/11/20 Cholecalciferol (Vitamin D3) [Vitamin D3] 125 mcg PO DAILY 09/11/20 Ipratropium/Albuterol Sulfate [Combivent Respimat 20-100 Mcg] 1 puff IH QID 09/11/20 Krill Oil 500 mg PO DAILY 09/11/20 Loperamide HCl [Anti-Diarrheal] 2 mg PO BID PRN 09/11/20 Magnesium Hydroxide [Milk Of Magnesia] 30 ml PO DAILY PRN 09/11/20 Melatonin 6 mg PO HS 09/11/20 Methenamine Hippurate 1 gm PO BID 09/11/20 Mirtazapine 45 mg PO HS 09/11/20 Montelukast Sodium 10 mg PO HS 09/11/20 Naproxen [Naprosyn] 500 mg PO BID 09/11/20 Omeprazole 20 mg PO DAILY 09/11/20 Oxycodone HCl/Acetaminophen [Endocet 10-325 mg Tablet] 1 ea PO BID 09/11/20 Polyethylene Glycol 3350 [Miralax] 17 gm PO DAILY PRN 09/11/20 Polyvinyl Alcohol [Artificial Tears] 1 drp OP Q4H PRN 09/11/20 Pramipexole Di-HCl [Pramipexole Dihydrochloride] 0.125 mg PO HS 09/11/20 Pregabalin [Lyrica] 100 mg PO BID 09/11/20 Sennosides/Docusate Sodium [Senna-S 8.6-50 mg Tablet] 1 ea PO BID 09/11/20 Simvastatin 80 mg PO HS 09/11/20 Topiramate [Topamax] 25 mg PO BID 09/11/20 Vit A/Vit C/Vit E/Zinc/Copper [Preservision Areds Tablet] 1 ea PO BID 09/11/20 Vitamin B Complex Vit C No.3 [B Complex with Vitamin C] 1 ea PO DAILY 09/11/20 metFORMIN HCL [Metformin HCl] 500 mg PO BID 09/11/20 Fluticasone Propion/Salmeterol [Advair 250-50 Diskus] 1 puff IH BID 12/11/20 Amlodipine Besylate 10 mg PO DAILY 01/11/21 Cetirizine HCl [Zyrtec] 10 mg PO DAILY 01/11/21 DULoxetine HCL [Cymbalta] 30 mg PO DAILY 01/11/21 Duloxetine HCl [Drizalma Sprinkle] 60 mg PO DAILY 01/11/21 Fluticasone Propionate [Flonase] 1 spray NS DAILY 01/11/21 Furosemide [Lasix] 40 mg PO DAILY 01/11/21 Gabapentin [Neurontin] 600 mg PO TID 01/11/21 Guaifen/Dextromethorphan/PE [Robafen Cf Liquid] 10 ml PO QID PRN 01/11/21 Potassium Chloride [Klor-Con] 20 meq PO DAILY 01/11/21 Vit C/E/Zn/Coppr/Lutein/Zeaxan [Preservision Areds 2 Softgel] 1 ea PO DAILY 01/11/21 predniSONE [Prednisone] 20 mg PO DAILY 01/11/21 traZODone HCL [Desyrel] 25 mg PO HS PRN 01/11/21
[2021-01-12] MEDS ORDERED: LEVOFLOXACIN IN DEXTROSE 5 % 500 MG/100 ML BAG IV SCH (11:00)
[2021-01-12] MEDS ORDERED: LEVOFLOXACIN IN DEXTROSE 5 % 750 MG/150 ML BAG IV SCH (11:00)
[2021-01-12] MEDS: VANCOMYCIN/WATER FOR INJ (PEG) 1 GM/200 ML BAG IV SCH (13:03)
[2021-01-12 17:48] VITALS: BP 125/68
== END 2021-01-12 16:55 ==
LOC: ER 07:52 → MS 07:52
PROVIDERS: ADMIT Internal Medicine; ATTEND Internal Medicine